=== PATIENT | female | born 1940 | race Caucasian/White ===

== ENCOUNTER 2018-09-27 09:48 | Outpatient (CLI) | payer MEDICARE ==
[~2018-09-27] VITALS: Ht 153.7 cm; Wt 79.8 kg
[2018-09-27] MEDS ORDERED: LEVO75TA6 PO (11:00)
[2018-09-27] MEDS ORDERED: CHOL10007 PO (11:00)
[2018-09-27] MEDS ORDERED: VITA1CAP PO (11:00)
[2018-09-27] MEDS ORDERED: METO-395 PO (11:00)
[2018-09-27] MEDS ORDERED: GUAI600T43 PO (11:00)
[2018-09-27] MEDS ORDERED: LISI-552 PO (11:00)
[2018-09-27] MEDS ORDERED: ISM60TCR PO (11:00)
[2018-09-27] MEDS ORDERED: ASPI-586 PO (11:00)
[2018-09-27] MEDS ORDERED: TRAM50TA2 PO (11:00)
[2018-09-27] MEDS ORDERED: POTA99TA17 PO (11:00)
[2018-09-27] MEDS ORDERED: CALC-650 PO (11:00)
[2018-09-27] MEDS ORDERED: DIPH25CA79 PO (11:00)
[2018-09-27] MEDS ORDERED: FURO-125 PO ×2 (11:00)
== END 2018-09-27 11:05 | disposition home or self-care (01) ==
LOC: PREOP 09:48
PROVIDERS: ATTEND Specialist
DX: Z01.818 Encounter for other preprocedural examination (principal)

== ENCOUNTER 2018-09-28 09:38 | Day surgery (SDC) | payer MEDICARE, OTHER ==
[~2018-09-28] VITALS: Ht 153.7 cm; Wt 79.8 kg
[~2018-09-28 09:38] MED LIST: ASPI-586 PO; CALC-650 PO; CHOL10007 PO; DIPH25CA79 PO; FURO-125 PO; GUAI600T43 PO; ISM60TCR PO; LEVO75TA6 PO; LISI-552 PO; METO-395 PO; POTA99TA17 PO; TRAM50TA2 PO; VITA1CAP PO
--- OUTSIDE RECORDS SUMMARY | 2018-09-28 09:41 | XMS REPORT | Continuity of Care Document ---
Author Author [facility] Organization [facility] Address Unknown Phone Unavailable Allergies Active Description Code Type Severity Reaction Onset Reported/Identified Relationship to Patient Clinical Status Yes LIDOCAINE UNKNOWN UNKNOWN Yes NORVASC UNKNOWN UNKNOWN Yes SULFA (SULFONAMIDE ANTIBIOTICS) UNKNOWN UNKNOWN Yes propoxyphene [id number] Drug Allergy Severe CP 09/27/2018 Yes amlodipine [id number] Drug Allergy Moderate FEET SWELLING 09/27/2018 Yes aliskiren [id number] Drug Allergy Unknown N/A 09/27/2018 Medications There is no data. Problems Date Dx Coded Attending Type Code Diagnosis Diagnosed By 06/06/2017 Fuentes Dorado 401.9 UNSPECIFIED ESSENTIAL HYPERTENSION 06/06/2017 Fuentes Dorado I10 ESSENTIAL (PRIMARY) HYPERTENSION 06/06/2017 Fuentes Dorado 272.4 OTHER AND UNSPECIFIED HYPERLIPIDEMIA 06/06/2017 Fuentes Dorado 401.9 UNSPECIFIED ESSENTIAL HYPERTENSION 06/06/2017 Fuentes Dorado E78.4 OTHER HYPERLIPIDEMIA 06/06/2017 Fuentes Dorado I10 ESSENTIAL (PRIMARY) HYPERTENSION 06/06/2017 Fuentes Dorado 244.8 OTHER SPECIFIED ACQUIRED HYPOTHYROIDISM 06/06/2017 Fuentes Dorado 272.4 OTHER AND UNSPECIFIED HYPERLIPIDEMIA 06/06/2017 Fuentes Dorado 401.9 UNSPECIFIED ESSENTIAL HYPERTENSION 06/06/2017 Fuentes Dorado E03.8 OTHER SPECIFIED HYPOTHYROIDISM 06/06/2017 Fuentes Dorado E78.4 OTHER HYPERLIPIDEMIA 06/06/2017 Fuentes Dorado I10 ESSENTIAL (PRIMARY) HYPERTENSION 09/18/2017 Lakeshia Jacob 402.90 HYPERTENSIVE HEART DISEASE, UNSPECIFIED, WITHOUT HEART FAILURE 09/18/2017 Lakeshia Jacob 416.8 OTHER CHRONIC PULMONARY HEART DISEASES 09/18/2017 Lakeshia Jacob I11.9 HYPERTENSIVE HEART DISEASE WITHOUT HEART FAILURE 09/18/2017 Lakeshia Jacob I27.2 OTHER SECONDARY PULMONARY HYPERTENSION 09/18/2017 Lakeshia Jacob 244.9 09/18/2017 Lakeshia Jacob W 268 09/18/2017 Lakeshia Jacob W 272.8 OTHER DISORDERS OF LIPOID METABOLISM 09/18/2017 Lakeshia Jacob W 402.90 HYPERTENSIVE HEART DISEASE, UNSPECIFIED, WITHOUT HEART FAILURE 09/18/2017 Laksehia Jacob W 416.8 OTHER CHRONIC PULMONARY HEART DISEASES 09/18/2017 Lakeshia Jacob W 425.18 OTHER HYPERTROPHIC CARDIOMYOPATHY 09/18/2017 Lakeshia Jacob E03.9 HYPOTHYROIDISM, UNSPECIFIED 09/18/2017 Lakeshia Jacob W E55.9 VITAMIN D DEFICIENCY, UNSPECIFIED 09/18/2017 Lakeshia Jacob W E78.5 HYPERLIPIDEMIA, UNSPECIFIED 09/18/2017 Lakeshia Jacob W I11.9 HYPERTENSIVE HEART DISEASE WITHOUT HEART FAILURE 09/18/2017 Lakeshia Jacob I27.2 OTHER SECONDARY PULMONARY HYPERTENSION 09/18/2017 Lakeshia Jacob I42.1 OBSTRUCTIVE HYPERTROPHIC CARDIOMYOPATHY Procedures There is no data. Results Test Result Range Holter Montor 24 Hour - 06/06/17 11:01 Holter Monitor 24 Hour Complete Thyroid Stimulating Hormone - 09/18/17 08:16 TSH 3.83 mIU/mL 0.32-5.00 Vitamin D, 25 OH - 09/18/17 08:16 Vitamin D, 25 OH 42.50 ng/mL 25.00-100.00 BNP - 03/13/18 10:08 BNP 408.10 pg/ml 0.00-100.00 Thyroid Stimulating Hormone - 09/24/18 07:41 TSH 1.99 mIU/mL 0.32-5.00 Encounters ACCT No. Visit Date/Time Discharge Status Pt. Type Provider Facility Loc./Unit Complaint [id number] 09/27/2018 09:48:00 09/27/2018 11:05:00 DIS Outpatient BLANCO MONROY MD [facility] PREOP CATARACT [id number] 09/05/2013 14:19:00 09/05/2013 23:59:59 CLS Outpatient [id number] 07/29/2013 13:50:00 07/29/2013 23:59:59 CLS Outpatient [id number] 09/28/2018 12:45:00 PEN Preadmit [facility] [id number] 09/24/2018 07:38:00 09/24/2018 23:59:00 DIS Outpatient Lakeshia Jacob [id number] 03/13/2018 09:43:00 03/13/2018 23:59:00 DIS Outpatient Fuentes Dorado [id number] 09/18/2017 08:07:00 09/18/2017 23:59:00 DIS Outpatient Lakeshia Jacob [id number] 06/06/2017 10:42:00 06/06/2017 23:59:00 DIS Outpatient Fuentes Dorado
[2018-09-28 09:45] VITALS: BP 168/85
[2018-09-28] MEDS ORDERED: LIDOCAINE PF 1% 2 ML AMP IR PRN (10:00)
[2018-09-28] MEDS ORDERED: POVIDONE (BETADINE) OPHTH SOLN 5% 30 ML OP ONE (10:00)
[2018-09-28] MEDS ORDERED: TIMOLOL MALEATE 0.5% 5 ML (TIMOPTIC) BTL OU PRN (10:00)
[2018-09-28] MEDS ORDERED: MOXIFLOXACIN OPHTH SOLN 5 MG/ML 0.3 ML SYRINGE OP ONE (10:00)
[2018-09-28] MEDS: TETRACAINE 0.5% OPHTH SOLN 4 ML BTL (SINGLE DOSE ONLY) OU PRN ×4 (10:03→10:12)
[2018-09-28] MEDS: CYCLOPENTOLATE 1% (CYCLOGYL) 2 ML DROPS OP SCH ×3 (10:06→10:12)
[2018-09-28] MEDS: PHENYLEPHRINE 10% OPHTH (NEO-SYN) 5 ML BTL OU SCH ×3 (10:06→10:12)
[2018-09-28] MEDS ORDERED: MIDAZOLAM 2 MG/2 ML (VERSED) VIAL ONE (10:13)
--- NOTE | 2018-09-28 10:15 | Ophthalmologist Pre-Op Note ---
Pre-Operative Progress Note H&P Reviewed The H&P was reviewed, patient examined and no changes noted. Date H&P Reviewed: Sep 28, 2018 Time H&P Reviewed: 10:15 Pre-Op Dx Cataract, Right Eye BLANCO MONROY MD Sep 28, 2018 10:15
--- NOTE | 2018-09-28 10:49 | Ophthalmology Operative Report ---
Cataract removal/placement IOL PREOPERATIVE DIAGNOSIS: Cataract Right Eye POSTOPERATIVE DIAGNOSIS: Cataract Right Eye PROCEDURE: Cataract removal and placement of posterior chamber implant, right eye SURGEON: Blair Monroy ANESTHESIA: Topical with sedation COMPLICATIONS: None ESTIMATED BLOOD LOSS: Minimal DESCRIPTION OF PROCEDURE: After proper informed consent was obtained, the patient, a 78 female, was taken to the Operating Room and the right eye was anesthetized with tetracaine. The right eye was then prepped and draped in the usual manner. A wire lid speculum was placed. A paracentesis was made at the left hand position. Preservative free lidocaine was injected into the anterior chamber followed by viscoelastic. A clear corneal incision was made in the temporal position. A capsulorrhexis was preformed and the central nuclear and cortical material were removed. The posterior capsule was polished and Sushant 20.0 AU00T0 IOL was placed into the capsular bag. The residual viscoelastic was aspirated and balanced saline solution was injected into the anterior chamber. Moxifloxacin was injected into the anterior chamber. The wound was checked and found to be water tight. The patient tolerated the procedure well without complications. BLAIR MONROY MD Sep 28, 2018 10:49
[2018-09-28 10:55] VITALS: BP 152/80
[2018-09-28] MEDS ORDERED: acetaZOLAMIDE ER 500 MG CAP (DIAMOX SEQUELS) PO ONE (11:30)
--- NOTE | 2018-09-28 12:56 | Anesthesia-General Post-Op ---
MAC Patient Condition Mental Status/LOC: Same as Preop Cardiovascular: Satisfactory Nausea/Vomiting: Absent Respiratory: Satisfactory Pain: Controlled Complications: Absent Post Op Complications Complications None Follow Up Care/Instructions Patient Instructions None needed. Anesthesiology Discharge Order Discharge Order Patient is doing well, no complaints, stable vital signs, no apparent adverse anesthesia problems. No complications reported per nursing. GISSELLE ROBISON CRNA Sep 28, 2018 12:56
== END 2018-09-28 10:55 | disposition home or self-care (01) ==
LOC: SDC 09:38
PROVIDERS: ATTEND Specialist
DX: H25.11 Age-related nuclear cataract, right eye (principal); I10 Essential (primary) hypertension; E03.9 Hypothyroidism, unspecified; Z79.82 Long term (current) use of aspirin; Z79.899 Other long term (current) drug therapy

== ENCOUNTER 2021-10-15 15:26 | Inpatient (IN) | payer MEDICARE ==
[~2021-10-15] VITALS: Ht 165.5 cm; Wt 72.4 kg
[~2021-10-15 15:26] MED LIST changes: +APIX5TAB PO; +ASPI-1238 PO; +ASPI-992 PO; +CEFD300C3 PO; +CHOL100048 PO; +DIGO125T18 PO; +DILT180C85 PO; +DILT300C52 PO; -ISM60TCR PO; +ISOS60TA63 PO; -LISI-552 PO; +LISI20TA26 PO; +LISI40TA9 PO; -METO-395 PO; +MTP100TCR PO; +POTA99TA18 PO; -TRAM50TA2 PO; +TRM50T PO; +VITA-189 PO; +[UNRECOGNIZED DRUG - CODE] MC
--- NOTE | 2021-10-15 15:43 | ED Neurological Problem ---
General Chief Complaint: Neuro-Stroke Like Symptoms Stated Complaint: POSSIBLE STROKE Source: patient, EMS Exam Limitations: clinical condition History of Present Illness Date Seen by Provider: Oct 15, 2021 Time Seen by Provider: 15:30 Initial Comments 81-year-old female with past medical history of pulmonary hypertension, chronic respiratory failure with hypoxia on 2 to 3 L oxygen, A. fib, CAD, hypertension, hypothyroidism coming in via EMS from home due to new weakness and confusion. They were called for a wellness check, and she was sitting on the floor in the bathroom. She denies falling, but says she was unable to stand up. She is unsure why she was on the floor. She was not wearing oxygen on their arrival and they replaced her oxygen. Unsure when she was last normal but they state that she had some right arm weakness that she believes is new. She is unsure if she took her medications this morning including her apixaban. She is denying any pain anywhere. Glucose was 140 for EMS. Further elements of the history and physical are unable to be obtained as the patient is confused. Allergies and Home Medications Allergies Coded Allergies: propoxyphene (Verified Allergy, Severe, CP, 09/27/18) amiodarone (Verified Allergy, Intermediate, Hives, 05/27/20) hives, itching, redness amlodipine (Verified Allergy, Intermediate, FEET SWELLING, 09/27/18) aliskiren (Verified Allergy, Unknown, 09/27/18) Patient Home Medication List Home Medication List Reviewed: Yes Apixaban (Eliquis) 5 Mg Tablet, 5 MG PO BID Prescribed by: KAYE ESPINOZA on 06/02/20 1008 Aspirin (Aspirin EC) 81 Mg Tablet.dr, 81 MG PO DAILY, (Reported) Entered as Reported by: JOSE RASCON on 05/25/20 1349 Aspirin/Acetaminophen/Caffeine (Excedrin Extra Strength Caplet) 1 Each Tablet, 1 EACH PO DAILY PRN for PAIN-MILD (1-4), (Reported) Entered as Reported by: JOSE RASCON on 05/25/20 1352 Calcium Carb/Magnesium Cmb #10 (Christopher-Mag Tablet Chewable) 1 Each Tab.chew, 1 EACH PO DAILY, (Reported) Entered as Reported by: HOMAR HARRIS on 09/27/18 1100 Cefdinir (Cefdinir) 300 Mg Capsule, 300 MG PO BID Prescribed by: KAYE ESPINOZA on 06/02/20 100 Cholecalciferol (Vitamin D3) (Vitamin D3) 25 Mcg Capsule, 25 MCG PO DAILY, (Reported) Entered as Reported by: JOSE RASCON on 05/25/20 134 Digoxin (Digox) 125 Mcg Tablet, 0.25 MG PO DAILY Prescribed by: KAYE ESPINOZA on 06/02/20 100 Diltiazem HCl (Diltiazem 24Hr ER) 300 Mg Cap.er.24h, 300 MG PO DAILY Prescribed by: KAYE ESPINOZA on 06/02/20 100 Diphenhydramine HCl (Benadryl) 25 Mg Capsule, 25 MG PO HS PRN for ALLERGIES, (Reported) Entered as Reported by: HOMAR HARRIS on 09/27/18 1100 Flavoring Agent (Magnasweet 135) 1 Gm Powder, 0 MC DAILY PRN for LEG CRAMPS, (Reported) Entered as Reported by: JOSE RASCON on 05/25/20 1359 Furosemide (Lasix) 20 Mg Tablet, 20 MG PO DAILY, (Reported) Entered as Reported by: HOMAR HARRIS on 09/27/18 1100 Guaifenesin (Mucinex) 600 Mg Tab.er.12h, 600 MG PO DAILY, (Reported) Entered as Reported by: HOMAR HARRIS on 09/27/18 1100 Levothyroxine Sodium (Levothyroxine Sodium) 75 Mcg Tablet, 75 MCG PO DAILY, (Reported) Entered as Reported by: HOMAR HARRIS on 09/27/18 1100 Lisinopril (Lisinopril) 40 Mg Tablet, 40 MG PO DAILY, (Reported) Entered as Reported by: JOSE RASCON on 05/25/20 134 Potassium Gluconate (Potassium Gluconate) 99 Mg Tablet.er, 99 MG PO DAILY, (Reported) Entered as Reported by: JOSE RASCON on 05/25/20 134 Tramadol HCl (Tramadol HCl) 50 Mg Tablet, 50 MG PO Q6H PRN for PAIN-MODERATE (5- 7), (Reported) Entered as Reported by: HOMAR HARRIS on 09/27/18 1100 Vitamin B Complex (B Complex) 1 Each Tablet, 1 EACH PO DAILY, (Reported) Entered as Reported by: JOSE RASCON on 05/25/20 1721 Review of Systems Review of Systems Constitutional: No chills, No fever Eyes: Denies Blurred Vision Respiratory: short of breath Cardiovascular: No chest pain Gastrointestinal: No abdominal pain Genitourinary: no symptoms reported Musculoskeletal: no symptoms reported Skin: no symptoms reported Psychiatric/Neurological: Weakness Endocrine: No Symptoms Reported Hematologic/Lymphatic: No Symptoms Reported All Other Systems Reviewed Negative Unless Noted: Yes Past Alcdulz-Cczcqb-Qncxgx Hx Patient Social History Tobacco Use?: No Seasonal Allergies Seasonal Allergies: Yes Past Medical History Sleep Apnea Currently Using CPAP: No Currently Using BIPAP: No Cardiac: Yes Neurological: No Female Reproductive Disorders: Denies Sexually Transmitted Disease: No HIV/AIDS: No Genitourinary: No Gastroesophageal Reflux, Diverticulosis Musculoskeletal: Yes Fibromyalgia, Chronic Back Pain Endocrine: No Cataract Loss of Vision: Denies Hearing Impairment: Hard of Hearing, Hearing Aide Right Cancer: No Psychosocial: No Integumentary: No Pruritis Blood Disorders: No Adverse Reaction/Blood Tranf: No Physical Exam Vital Signs Vital Signs - First Documented 10/15/21 15:27 Temp 35.9 Pulse 114 Resp 30 B/P (MAP) 187/110 (135) Pulse Ox 92 O2 Delivery Nasal Cannula O2 Flow Rate 6.00 Capillary Refill : Height, Weight, BMI Height: 5'0.50" Weight: 176lbs. 0.0oz. 79.886339pe; 36.76 BMI Method: General Appearance: WD/WN, no apparent distress HEENT: PERRL/EOMI, normal ENT inspection, pharynx normal Neck: non-tender, full range of motion, supple, normal inspection Respiratory: chest non-tender, lungs clear, normal breath sounds, no respiratory distress, no accessory muscle use Cardiovascular: no edema, tachycardia, irregularly irregular Gastrointestinal: normal bowel sounds, non tender, soft; No distended, No guarding, No rebound Back: normal inspection, no CVA tenderness, no vertebral tenderness Extremities: non-tender, normal inspection, no pedal edema, no calf tenderness, normal capillary refill Neurologic/Psychiatric: pre 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 consultant II-XII nml as tested, alert, normal mood/affect, disoriented x 3, other (3-5 strength with the right upper extremity compared to the left which is 5 out of 5, normal [id number] with the left, unable to per form with the right hand due to the weakness, oriented to person and place but not time or situation, has some word finding difficulties) Crainal Nerves: normal hearing, normal speech, PERRL Motor/Sensory: no sensory deficit Skin: normal color, warm/dry Lymphatic: no adenopathy Stroke Onset of Symptoms Symptoms onset unknown: Yes NIH Stroke Scale Assessment Select: Initial Level of Consciousness: 0=Alert (0), Level of Consciousness- Questions: 1=Answers one question (1), LOC Commands: 0=Performs both tasks (0), Gaze: Normal (0), Visual Lei: 0=No visual loss (0), Facial Movement (Facial Paresis): 0=Normal symmetrical mnt (0), Motor Function-Arms Right: 2=Some effort/gravity (2), Motor Function-Arms Left: 0=No drift (0), Motor Function-Legs Right: 1=Drift (1), Motor Function-Legs Left: 0=No drift (0), Limb Ataxia: 0=Absent (0), Sensory: 0=Normal:no loss (0), Best Language: 1=Mild to moderat aphasia (1), Dysarthria: 0=Normal (0), Extinction & Inattention: 0=No abnormality (0), Total: 5 Stroke Thrombolytic Exclusion Age 18 or Over: Yes Oral Anticoagulants: Yes TPA Contraindication: Yes IV - TPa Received IV - TPa Procedure Performed?: No Focused Exam Lactate Level 10/15/21 16:36: Lactic Acid Level 5.28*H Lactic Acid Level Laboratory Tests Test 10/15/21 16:36 Lactic Acid Level 5.28 MMOL/L (0.50-2.00) *H Progress/Results/Core Measures Results/Orders Lab Results Laboratory Tests Test 10/15/21 15:41 10/15/21 15:57 10/15/21 16:13 10/15/21 16:24 Range/Units White Blood Count 15.1 H 4.3-11.0 10^3/uL Red Blood Count 5.52 H 3.80-5.11 10^6/uL Hemoglobin 12.4 11.5-16.0 g/dL Hematocrit 42 35-52 % Mean Corpuscular Volume 76 L 80-99 fL Mean Corpuscular Hemoglobin 23 L 25-34 pg Mean Corpuscular Hemoglobin Concent 30 L 32-36 g/dL Red Cell Distribution Width 22.9 H 10.0-14.5 % Platelet Count 265 130-400 10^3/uL Mean Platelet Volume 10.4 9.0-12.2 fL Immature Granulocyte % (Auto) 0 % Neutrophils (%) (Auto) 80 H 42-75 % Lymphocytes (%) (Auto) 8 L 12-44 % Monocytes (%) (Auto) 12 0-12 % Eosinophils (%) (Auto) 0 0-10 % Basophils (%) (Auto) 0 0-10 % Neutrophils # (Auto) 12.1 H 1.8-7.8 X 10^3 Lymphocytes # (Auto) 1.1 1.0-4.0 X 10^3 Monocytes # (Auto) 1.8 H 0.0-1.0 X 10^3 Eosinophils # (Auto) 0.0 0.0-0.3 10^3/uL Basophils # (Auto) 0.0 0.0-0.1 10^3/uL Immature Granulocyte # (Auto) 0.0 0.0-0.1 10^3/uL Neutrophils % (Manual) 87 % Lymphocytes % (Manual) 5 % Monocytes % (Manual) 8 % Polychromasia SLIGHT Target Cells MODERATE Elliptocytes SLIGHT Blood Morphology Comment NA Prothrombin Time 18.0 H 12.2-14.7 SEC INR Comment 1.4 0.8-1.4 Activated Partial Thromboplast Time 28 24-35 SEC B-Type Natriuretic Peptide 865.4 H <100.0 PG/ML Glucometer 134 H 70-110 MG/DL D-Dimer 3.61 H 0.00-0.49 UG/ML Sodium Level 143 135-145 MMOL/L Potassium Level 4.0 3.6-5.0 MMOL/L Chloride Level 99 98-107 MMOL/L Carbon Dioxide Level 24 21-32 MMOL/L Anion Gap 20 H 5-14 MMOL/L Blood Urea Nitrogen 20 H 7-18 MG/DL Creatinine 1.03 0.60-1.30 MG/DL Estimat Glomerular Filtration Rate 55 BUN/Creatinine Ratio 19 Glucose Level 135 H 70-105 MG/DL Calcium Level 12.2 H 8.5-10.1 MG/DL Corrected Calcium 12.2 H 8.5-10.1 MG/DL Total Bilirubin 2.6 H 0.1-1.0 MG/DL Aspartate Amino Transf (AST/SGOT) 103 H 5-34 U/L Alanine Aminotransferase (ALT/SGPT) 53 0-55 U/L Alkaline Phosphatase 154 H 40-136 U/L Troponin I 5.127 *H <0.028 NG/ML Total Protein 7.6 6.4-8.2 GM/DL Albumin 4.0 3.2-4.5 GM/DL Digoxin Level 0.78 L 0.80-2.00 NG/ML Blood Gas Puncture Site UNK Blood Gas Patient Temperature 35.9 Arterial Blood pH 7.47 H 7.37-7.43 Arterial Blood Partial Pressure CO2 38 35-45 MMHG Arterial Blood Partial Pressure O2 97 H 79-93 MMHG Arterial Blood HCO3 28 H 23-27 MMOL/L Arterial Blood Total CO2 29.0 21.0-31.0 MMOL/L Arterial Blood Oxygen Saturation 98 94-100 % Arterial Blood Base Excess 4.0 H -2.5-2.5 MMOL/L Cam Test UNK Blood Gas Ventilator Setting NO Blood Gas Inspired Oxygen 50% Test 10/15/21 16:30 10/15/21 16:36 10/15/21 17:10 Range/Units Influenza Type A (RT-PCR) Not Detected Not Detecte Influenza Type B (RT-PCR) Not Detected Not Detecte SARS-CoV-2 RNA (RT-PCR) Not Detected Not Detecte Lactic Acid Level 5.28 *H 0.50-2.00 MMOL/L Urine Color YELLOW Urine Clarity CLEAR Urine pH 5.5 5-9 Urine Specific [place] >=1.030 1.016-1.022 Urine Protein 1+ H NEGATIVE Urine Glucose (UA) NEGATIVE NEGATIVE Urine Ketones NEGATIVE NEGATIVE Urine Nitrite NEGATIVE NEGATIVE Urine Bilirubin NEGATIVE NEGATIVE Urine Urobilinogen 0.2 < = 1.0 MG/DL Urine Leukocyte Esterase NEGATIVE NEGATIVE Urine RBC (Auto) 1+ H NEGATIVE Urine RBC NONE /HPF Urine WBC 2-5 /HPF Urine Squamous Epithelial Cells 0-2 /HPF Urine Renal Epithelial Cells NONE /HPF Urine Crystals NONE /LPF Urine Bacteria NEGATIVE /HPF Urine Casts PRESENT /LPF Urine Hyaline Casts 5-10 H /LPF Urine Mucus NEGATIVE /LPF Urine Culture Indicated NO My Orders Orders - JAKOB CARSON MD Cbc With Automated Diff (10/15/21 15:34) Protime With Inr (10/15/21 15:34) Partial Thromboplastin Time (10/15/21 15:34) Comprehensive Metabolic Panel (10/15/21 15:34) Troponin I Allen (10/15/21 15:34) Ua Culture If Indicated (10/15/21 15:34) Chest 1 View, Ap/Pa Only (10/15/21 15:34) Ekg Tracing (10/15/21 15:34) Nothing By Mouth (10/15/21 Dinner) Accucheck Stat ONCE (10/15/21 15:34) Ed Iv/Invasive Line Start (10/15/21 15:34) Ed Iv/Invasive Line Start (10/15/21 15:34) Vital Signs Stroke Patient Q15M (10/15/21 15:34) Ct Head Wo-R/O Stroke (10/15/21 15:34) O2 (10/15/21 15:34) Intake & Output 06,14,22 (10/15/21 15:34) Monitor-Rhythm Ecg Trace Only (10/15/21 15:34) Dysphagia Screening Tool (10/15/21 15:34) Manual Differential (10/15/21 15:41) Arterial Blood Gas (10/15/21 16:15) Bnp Allen (10/15/21 16:15) Digoxin (10/15/21 16:15) Lactic Acid Analyzer (10/15/21 16:15) Influenza A And B By Pcr (10/15/21 16:15) Covid 19 Inhouse Test (10/15/21 16:15) Fibrin Degradation Products (10/15/21 16:29) Accucheck Stat ONCE (10/15/21 16:29) Ed Iv/Invasive Line Start (10/15/21 16:29) Ed Iv/Invasive Line Start (10/15/21 16:29) Vital Signs Stroke Patient Q15M (10/15/21 16:29) O2 (10/15/21 16:29) Intake & Output 06,14,22 (10/15/21 16:29) Dysphagia Screening Tool (10/15/21 16:29) Post Thrombolytic Adminstratio (10/15/21 16:29) Lipid Panel (10/16/21 06:00) Ekg Tracing (10/15/21 16:39) Diltiazem Drip Pre-Mix (Cardizem Drip Pr (10/15/21 16:45) Catheter(Urinary) Insert & Ass 03,15 (10/15/21 17:20) Aspirin Chewable Tablet (Baby Aspirin Ch (10/15/21 17:30) Aspirin Chewable Tablet (Baby Aspirin Ch (10/15/21 17:27) Medications Given in ED Current Medications Medications Dose Ordered Sig/Jalyn Route Start Time Stop Time Status Last Admin Dose Admin Aspirin 324 mg ONCE ONCE PO 10/15/21 17:30 10/15/21 17:31 DC 10/15/21 17:31 324 MG Vital Signs/I&O 10/15/21 10/15/21 15:27 15:27 Temp 35.9 Pulse 114 Resp 30 B/P (MAP) 187/110 (135) Pulse Ox 92 O2 Delivery Nasal Cannula O2 Flow Rate 6.00 Progress Progress Note : Progress Note 81-year-old female with above history coming in via EMS with weakness and confusion. EMS was initially called because no one had seen the patient for a couple days. On arrival one of the friends at the house said that the patient was normal yesterday. Unclear what time that was. The patient is unable to tell me the last time she was normal. When asked how she got on the ground and why she needed help up, she just kept repeating, "I was just trying to get up". She denies falling but is really unsure. EMS reports glucose was 140. She is in A. fib with RVR rates 120s. She is unsure if she took her Eliquis today. She was in a stroke alert and immediately taken to the CT scanner. NIH is 5 currently. Discussed the case with Dr. Estevez with neurology who would agree that the patient is not a candidate for TPA at this time with no last known normal, her age, and being on anticoagulation. She developed increasing work of breathing and was placed on bipap eventually. Was going to start the patient on a Cardizem drip but then initial labs came back with BNP elevated and troponin elevated around 5.1. Lactate elevated at 5. I am concerned the patient did have a cardiac event. Dr. Jiang did look at the EKG and did not see a STEMI, but given the significant troponin elevation would like to take the patient to the [facility] which she will go emergently. Also discussed the case with the patient's friend that found her today, Sarah, at [phone]. Let her daughter Charlene (lives in [place]) know the patient was here at [phone]. Discussed code status and patient wants to be full code. Initial ECG Impression Date: Oct 15, 2021 Initial ECG Impression Time: 15:35 Initial ECG Rate: 125 Initial ECG Rhythm: A Fib/Flutter Comment A. fib with RVR, wide QRS with the bundle branch block, ST elevation in leads V3 through V6, but given the bundle branch block this is discordant and does not meet criteria for STEMI, reviewed EKG with Dr. Jiang. Diagnostic Imaging Diagonstic Imaging: Xray Plain Films/CT/US/NM/MRI: chest Comments [facility], [place] NAME: PATTI ELLINGTON [facility] REC#: [id number] PT STATUS: REG ER : 1940 PHYSICIAN: JAKOB CARSON MD ADMIT DATE: 10/15/21/ER Draft Date of Exam:10/15/21 CT HEAD WO-R/O STROKE INDICATION: Neurologic deficit, stroke alert. TECHNIQUE: Multiple contiguous axial images were obtained through the brain without the use of intravenous contrast. Auto Exposure Controls were utilized during the CT exam to meet ALARA standards for radiation dose reduction. COMPARISON: There is no prior CT for comparison. FINDINGS: There are mild diffuse atrophic changes. There are mild patchy low-density changes in the deep white matter, compatible with chronic ischemic change. There is no acute hemorrhage or mass effect or midline shift. The ventricles are normal in size and position. There are atherosclerotic calcifications of the distal vertebral arteries as well as carotid siphons. There is no definite acute-appearing abnormality. Calvarial windows are unremarkable. IMPRESSION: Atrophic changes and chronic ischemic changes in deep white matter. No acute hemorrhage or mass effect or acute intracranial finding. Dictated on workstation # [id number] Dict: 10/15/21 1556 Trans: 10/15/21 1604 [id number] Interpreted by: VINCENT ASCENCIO MD Electronically signed by: Critical Care Note Critical Care Start Time: 15:30 Stop Time: 17:25 Total Time (minutes) 115 Progress The patient was at significant risk for hemodynamic and respiratory compromise. I was constantly in the room reassessing the patient and ordering new interventions and reassessing after that. She was in respiratory failure as well as A. fib with RVR with concern for hemodynamic collapse. Also had multiple in person and phone call conversations with different physicians and specialist including cardiology regarding her care. All time billed for critical care is separate from any procedures. Departure Impression Primary Impression: Respiratory failure Qualified Codes: J96.21 - Acute and chronic respiratory failure with hypoxia Additional Impressions: Atrial fibrillation with RVR Right sided weakness NSTEMI (non-ST elevated myocardial infarction) Disposition: ADMITTED INPATIENT Condition: Critical Admissions Decision to Admit Reason: Admit from ER (General) Decision to Admit/Date: Oct 15, 2021 Time/Decision to Admit Time: 17:00 Departure-Patient Inst. Referrals: MONE MALDONADO MD (PCP/Family) Primary Care Physician JAKOB CARSON MD Oct 15, 2021 15:43
[2021-10-15 15:47] LABS: BASOPHILS % (AUTO) 0 % (0-10); EOSINOPHILS % (AUTO) 0 % (0-10); HEMATOCRIT 42 % (35-52); HEMOGLOBIN 12.4 g/dL (11.5-16.0); LYMPHOCYTES # (AUTO) 1.1 X 10^3 (1.0-4.0); LYMPHOCYTES % (AUTO) 8 % (12-44); MEAN CORPUSCULAR HEMOGLOBIN 23 pg (25-34); MEAN CORPUSCULAR HGB CONC 30 g/dL (32-36); MEAN CORPUSCULAR VOLUME 76 fL (80-99); MEAN PLATELET VOLUME 10.4 fL (9.0-12.2); MONOCYTES # (AUTO) 1.8 X 10^3 (0.0-1.0); MONOCYTES % (AUTO) 12 % (0-12); NEUTROPHILS # (AUTO) 12.1 X 10^3 (1.8-7.8); NEUTROPHILS % (AUTO) 80 % (42-75); PLATELET COUNT 265 10^3/uL (130-400); WHITE BLOOD COUNT 15.1 10^3/uL (4.3-11.0)
[2021-10-15 16:05] LABS: INR 1.4 (0.8-1.4)
--- NOTE | 2021-10-15 16:05 | Diagnostic Imaging Report ---
INDICATION: Neurologic deficit, stroke alert. TECHNIQUE: Multiple contiguous axial images were obtained through the brain without the use of intravenous contrast. Auto Exposure Controls were utilized during the CT exam to meet ALARA standards for radiation dose reduction. COMPARISON: There is no prior CT for comparison. FINDINGS: There are mild diffuse atrophic changes. There are mild patchy low-density changes in the deep white matter, compatible with chronic ischemic change. There is no acute hemorrhage or mass effect or midline shift. The ventricles are normal in size and position. There are atherosclerotic calcifications of the distal vertebral arteries as well as carotid siphons. There is no definite acute-appearing abnormality. Calvarial windows are unremarkable. IMPRESSION: Atrophic changes and chronic ischemic changes in deep white matter. No acute hemorrhage or mass effect or acute intracranial finding. Dictated by: Dictated on workstation # [id number]
[2021-10-15 16:10] LABS: LYMPHOCYTES % (MANUAL) 5 %; MONOCYTES % (MANUAL) 8 %; NEUTROPHILS % (MANUAL) 87 %
[2021-10-15 16:11] LABS: ELLIPT/OVALOCYTES SLIGHT; POLYCHROMASIA SLIGHT; TARGET CELLS MODERATE
[2021-10-15 16:32] LABS: ABG OXYGEN SATURATION 98 % (94-100); ABG PCO2 38 MMHG (35-45); ABG PH 7.47 (7.37-7.43); ABG PO2 97 MMHG (79-93)
[2021-10-15 16:33] LABS: CALCIUM 12.2 MG/DL (8.5-10.1)
[2021-10-15 16:34] LABS: INSPIRED O2 50%; VENTILATOR NO
[2021-10-15 16:35] LABS: TOTAL PROTEIN 7.6 GM/DL (6.4-8.2)
[2021-10-15 16:35] LABS: PATIENT TEMP 35.9
[2021-10-15 16:36] LABS: BILIRUBIN,TOTAL 2.6 MG/DL (0.1-1.0)
[2021-10-15 16:38] LABS: CREATININE SERUM 1.03 MG/DL (0.60-1.30)
[2021-10-15] MEDS: dilTIAZem DRIP PRE-MIX 125 ML IV SCH ×2 (16:48→23:39)
[2021-10-15] MEDS ORDERED: HEParin 1000 UNIT/ML (10ML VIAL) FOR BOLUS IV SCH (17:00)
[2021-10-15] MEDS ORDERED: ASPIRIN 300 MG (5 GR) SUPPOSITORY PR STA (17:00)
[2021-10-15 17:17] LABS: BILIRUBIN,URINE NEGATIVE (NEGATIVE); CLARITY,URINE CLEAR; COLOR,URINE YELLOW; GLUCOSE, URINE (UA) NEGATIVE (NEGATIVE); KETONES,URINE NEGATIVE (NEGATIVE); LEUKOCYTE ESTERASE ,URINE NEGATIVE (NEGATIVE); NITRITE,URINE NEGATIVE (NEGATIVE); PH,URINE 5.5 (5-9); PROTEIN,URINE 1+ (NEGATIVE)
[2021-10-15] MEDS ORDERED: ASPIRIN 81 MG CHEW (CHILDREN'S ASA) ONE (17:27)
[2021-10-15 17:28] LABS: BACTERIA,URINE NEGATIVE /HPF; SQUAMOUS EPITHELIAL CELL,UR 0-2 /HPF
[2021-10-15] MEDS ORDERED: ASPIRIN 81 MG CHEW (CHILDREN'S ASA) PO ONE (17:30)
--- NOTE | 2021-10-15 17:35 | Diagnostic Imaging Report ---
EXAMINATION: Portable chest. Comparison made with prior study from May 30, 2020. INDICATION: Weakness. Found down. FINDINGS: There is abnormal enlargement demonstrated of the cardiac silhouette which appears of increased prominence compared to the prior exam. There also is abnormal prominence of the pulmonary vascularity suggesting a component of pulmonary edema. There is no large effusion. There is no pneumothorax. There is no identified acute fracture. IMPRESSION: 1. Enlargement of the cardiac silhouette with abnormal pulmonary vascularity suggesting edema. 2. The size of the cardiac silhouette appears increased from the prior examination with a prominent left superior heart border and right heart border. These findings could be further assessed with CT. Dictated by: Dictated on workstation # [id number]
[2021-10-15] MEDS ORDERED: fentaNYL INJ 100 MCG/2 ML AMP ONE ×2 (17:39→19:30)
[2021-10-15] MEDS ORDERED: MIDAZOLAM 5 MG/5 ML (VERSED) VIAL ONE (17:40)
[2021-10-15] MEDS ORDERED: NS IV 1000 ML 1,000 ML ONE (17:40)
[2021-10-15] MEDS ORDERED: LIDOCAINE 2% 20 ML (XYLOCAINE) VIAL ONE (17:40)
[2021-10-15] MEDS ORDERED: HEParin (CATH LAB) 2,000 ML IV ONE (17:40)
[2021-10-15] MEDS ORDERED: VANCOMYCIN INJECTION 0.1 MG in NS (IVPB) 250 ML IV SCH (17:45)
[2021-10-15] MEDS ORDERED: NITRO DRIP 25000 MCG/D5W 250 ML IV ONE (17:56)
[2021-10-15] MEDS ORDERED: HEParin 1000 UNIT/ML (10ML VIAL) FOR BOLUS ONE (17:56)
--- NOTE | 2021-10-15 18:14 | Consultation-Cardiology ---
HPI-Cardiology Cardiology Consultation Date of Consultation 10/15/21 Date of Admission Time Seen by Provider: 18:10 Indication: Non-ST elevation myocardial infarction HPI 81-year-old lady with history of paroxysmal atrial fibrillation, had sudden weakness, patient reported that she brought herself down to the floor, she was well found by family member and brought to the emergency room by ambulance, last contact with her was over 24 hours ago. She was noted to be in atrial fibrillation rapid ventricular response, she is short of breath, denied any chest pain. Had right-sided weakness. She was noted to have elevated troponin, has baseline left bundle branch block, some subtle changes were noted with her tachycardia and atrial fibrillation. Home Medications & Allergies Allergies: Coded Allergies: propoxyphene (Verified Allergy, Severe, CP, 09/27/18) amiodarone (Verified Allergy, Intermediate, Hives, 05/27/20) hives, itching, redness amlodipine (Verified Allergy, Intermediate, FEET SWELLING, 09/27/18) aliskiren (Verified Allergy, Unknown, 09/27/18) Home Medication List Reviewed: Yes [id number] Hx Patient Social History Type Used: Cigarettes Recent Hopitalizations: No Have you traveled recently?: No Alcohol Use?: No Immunizations Up To Date Date of Pneumonia Vaccine: May 25, 2019 Past Medical History Discussed below Family Medical History Family Medical Hx Noncontributory Review of Systems-General Review of Systems Constitutional: No chills, No fever; malaise, weakness EENTM: see HPI, no symptoms reported Respiratory: see HPI; No cough, No dyspnea on exertion, No hemoptysis, No orthopnea, No phlegm; short of breath; No stridor, No wheezing, No other Cardiovascular: see HPI; No chest pain Gastrointestinal: No abdominal pain Genitourinary: no symptoms reported Musculoskeletal: no symptoms reported Skin: no symptoms reported Psychiatric/Neurological: No Symptoms Reported, See HPI, Other (Right side weakness) All Other Systems Reviewed Negative Unless Noted: Yes Reviewed Test Results Reviewed Test Results Lab Laboratory Tests Test 10/15/21 15:41 10/15/21 15:57 10/15/21 16:13 10/15/21 16:24 Range/Units White Blood Count 15.1 H 4.3-11.0 10^3/uL Red Blood Count 5.52 H 3.80-5.11 10^6/uL Hemoglobin 12.4 11.5-16.0 g/dL Hematocrit 42 35-52 % Mean Corpuscular Volume 76 L 80-99 fL Mean Corpuscular Hemoglobin 23 L 25-34 pg Mean Corpuscular Hemoglobin Concent 30 L 32-36 g/dL Red Cell Distribution Width 22.9 H 10.0-14.5 % Platelet Count 265 130-400 10^3/uL Mean Platelet Volume 10.4 9.0-12.2 fL Immature Granulocyte % (Auto) 0 % Neutrophils (%) (Auto) 80 H 42-75 % Lymphocytes (%) (Auto) 8 L 12-44 % Monocytes (%) (Auto) 12 0-12 % Eosinophils (%) (Auto) 0 0-10 % Basophils (%) (Auto) 0 0-10 % Neutrophils # (Auto) 12.1 H 1.8-7.8 X 10^3 Lymphocytes # (Auto) 1.1 1.0-4.0 X 10^3 Monocytes # (Auto) 1.8 H 0.0-1.0 X 10^3 Eosinophils # (Auto) 0.0 0.0-0.3 10^3/uL Basophils # (Auto) 0.0 0.0-0.1 10^3/uL Immature Granulocyte # (Auto) 0.0 0.0-0.1 10^3/uL Neutrophils % (Manual) 87 % Lymphocytes % (Manual) 5 % Monocytes % (Manual) 8 % Polychromasia SLIGHT Target Cells MODERATE Elliptocytes SLIGHT Blood Morphology Comment NA Prothrombin Time 18.0 H 12.2-14.7 SEC INR Comment 1.4 0.8-1.4 Activated Partial Thromboplast Time 28 24-35 SEC B-Type Natriuretic Peptide 865.4 H <100.0 PG/ML Glucometer 134 H 70-110 MG/DL D-Dimer 3.61 H 0.00-0.49 UG/ML Sodium Level 143 135-145 MMOL/L Potassium Level 4.0 3.6-5.0 MMOL/L Chloride Level 99 98-107 MMOL/L Carbon Dioxide Level 24 21-32 MMOL/L Anion Gap 20 H 5-14 MMOL/L Blood Urea Nitrogen 20 H 7-18 MG/DL Creatinine 1.03 0.60-1.30 MG/DL Estimat Glomerular Filtration Rate 55 BUN/Creatinine Ratio 19 Glucose Level 135 H 70-105 MG/DL Calcium Level 12.2 H 8.5-10.1 MG/DL Corrected Calcium 12.2 H 8.5-10.1 MG/DL Total Bilirubin 2.6 H 0.1-1.0 MG/DL Aspartate Amino Transf (AST/SGOT) 103 H 5-34 U/L Alanine Aminotransferase (ALT/SGPT) 53 0-55 U/L Alkaline Phosphatase 154 H 40-136 U/L Troponin I 5.127 *H <0.028 NG/ML Total Protein 7.6 6.4-8.2 GM/DL Albumin 4.0 3.2-4.5 GM/DL Digoxin Level 0.78 L 0.80-2.00 NG/ML Blood Gas Puncture Site UNK Blood Gas Patient Temperature 35.9 Arterial Blood pH 7.47 H 7.37-7.43 Arterial Blood Partial Pressure CO2 38 35-45 MMHG Arterial Blood Partial Pressure O2 97 H 79-93 MMHG Arterial Blood HCO3 28 H 23-27 MMOL/L Arterial Blood Total CO2 29.0 21.0-31.0 MMOL/L Arterial Blood Oxygen Saturation 98 94-100 % Arterial Blood Base Excess 4.0 H -2.5-2.5 MMOL/L Acm Test UNK Blood Gas Ventilator Setting NO Blood Gas Inspired Oxygen 50% Test 10/15/21 16:30 10/15/21 16:36 10/15/21 17:10 Range/Units Influenza Type A (RT-PCR) Not Detected Not Detecte Influenza Type B (RT-PCR) Not Detected Not Detecte SARS-CoV-2 RNA (RT-PCR) Not Detected Not Detecte Lactic Acid Level 5.28 *H 0.50-2.00 MMOL/L Urine Color YELLOW Urine Clarity CLEAR Urine pH 5.5 5-9 Urine Specific [place] >=1.030 1.016-1.022 Urine Protein 1+ H NEGATIVE Urine Glucose (UA) NEGATIVE NEGATIVE Urine Ketones NEGATIVE NEGATIVE Urine Nitrite NEGATIVE NEGATIVE Urine Bilirubin NEGATIVE NEGATIVE Urine Urobilinogen 0.2 < = 1.0 MG/DL Urine Leukocyte Esterase NEGATIVE NEGATIVE Urine RBC (Auto) 1+ H NEGATIVE Urine RBC NONE /HPF Urine WBC 2-5 /HPF Urine Squamous Epithelial Cells 0-2 /HPF Urine Renal Epithelial Cells NONE /HPF Urine Crystals NONE /LPF Urine Bacteria NEGATIVE /HPF Urine Casts PRESENT /LPF Urine Hyaline Casts 5-10 H /LPF Urine Mucus NEGATIVE /LPF Urine Culture Indicated NO Physical Exam Physical Exam Vital Signs Vital Signs - First Documented 10/15/21 15:27 Temp 35.9 Pulse 114 Resp 30 B/P (MAP) 187/110 (135) Pulse Ox 92 O2 Delivery Nasal Cannula O2 Flow Rate 6.00 Capillary Refill : Less Than 3 Seconds Height, Weight, BMI Height: 5'0.50" Weight: 176lbs. 0.0oz. 79.606217cl; 25.00 BMI Method: General Appearance: No Apparent Distress, WD/WN Eyes: Bilateral Eye Normal Inspection, Bilateral Eye PERRL, Bilateral Eye EOMI HEENT: PERRL/EOMI, TMs Normal, Normal ENT Inspection, Pharynx Normal, Moist Mucous Membranes Neck: Full Range of Motion, Normal Inspection, Non Tender, Supple, Carotid Bruit Respiratory: Chest Non Tender, Normal Breath Sounds, No Accessory Muscle Use, No Respiratory Distress Cardiovascular: No Edema, No Gallop, No JVD, No Murmur, Normal Peripheral Pulses, Irregularly Irregular, Tachycardia Gastrointestinal: Normal Bowel Sounds, No Organomegaly, No Pulsatile Mass, Non Tender, Soft Back: Normal Inspection, No CVA Tenderness, No Vertebral Tenderness Extremity: Normal Capillary Refill, Normal Inspection, Normal Range of Motion, Non Tender, No Calf Tenderness, No Pedal Edema Neurologic/Psychiatric: Alert, Oriented x3, Normal Mood/Affect, Other (Right side week) Skin: Normal Color, Warm/Dry Lymphatic: No Adenopathy A/P-Cardiology Admission Diagnosis Non-ST elevation myocardial infarction Atrial fibrillation with rapid ventricular response Subacute CVA Acute respiratory failure Assessment/Plan Non-ST elevation myocardial infarction, elevated troponin, emergency cardiac catheterization was carried out showing calcified coronary artery with mild to moderate disease nonobstructive disease. Atrial fibrillation with rapid ventricular response, had history of paroxysmal atrial fibrillation, started on Cardizem drip, starting Lovenox, continue on aspirin, monitor Acute respiratory failure, shortness of breath, currently on Vapotherm, probably will need BiPAP, managed by medical team questionable underlying pneumonia st arted on empiric antibiotic Sepsis, elevated lactic acid, could be secondary to sepsis versus being on the floor for over 24 hours. Subacute CVA. Patient has right-sided weakness. Probably was the cause of her weakness and fall over 24 hours ago. Hypertension, starting Cardizem drip, monitor tolerance and response Clinical Quality Measures Stroke: Symptoms onset unknown: Yes RIK MILLARD MD Oct 15, 2021 18:14
[2021-10-15] MEDS ORDERED: PATIENT MAY USE OWN MEDS, ALL PO SCH (18:15)
[2021-10-15] MEDS ORDERED: ENOXAPARIN 100 MG/1 ML (LOVENOX) SYR SC SCH (18:15)
--- NOTE | 2021-10-15 18:15 | Conscious Sedation/ASA ---
Conscious Sedation Pre-Proced Time 17:00 ASA Score 2 For ASA 3 and 4: Consider anesthesia and medical clearance. Also, for patients with a history of failed moderate sedation consider anesthesia. Airway Lungs Heart ASA score ASA 1: a normal healthy patient ASA 2: a patient with a mild systemic disease (mid diabetes, controlled hypertension, obesity x ASA 3: a patient with a severe systemic disease that limits activity (angina, COPD, prior Myocardial infarction) ASA 4: a patient with an incapacitating disease that is a constant threat to life (CHF, renal failure) ASA 5: a moribund patient not expected to survive 24 hrs. (ruptured aneurysm) ASA 6: a declared brain- patient whose organs are being harvested. For emergent operations, add the letter E after the classification Mallampati Classification Grade 3 Sedation Plan Analgesia, Amnesia, Plan communicated to team members, Discussed options with patient/fam, Discussed risks with patient/fam The patient is an appropriate candidate to undergo the planned procedure, sedation, and anesthesia. The patient immediately re-assessed prior to indication. RIK MILLARD MD Oct 15, 2021 18:15
--- NOTE | 2021-10-15 18:18 | Cardiac Cath Report ---
Cardiac Cath Report Physician (s)/Mail Clerk (s) Physician RIK MILLARD MD Pre-Procedure Diagnosis Pre-Procedure Diagnosis: Non-ST elevation myocardial infarction Post-Procedure Note Procedure Start Date: Oct 15, 2021 Name of Procedure: Left heart catheterization Findings/Procedure Note PROCEDURE NOTE: 81-year-old lady with history of paroxysmal atrial fibrillation, admitted with change in mental status, right-sided weakness, atrial fibrillation with rapid ventricular response, abnormal EKG and had elevated troponin, emergency cardiac catheterization was advised. After explaining the procedure to the patient, all pros and cons were explained, all questions were answered. The patient signed the consent and then she was placed on the cardiac catheterization laboratory. Groin was prepped SL fashion local anesthesia was used. Sheath placed in the right femoral artery. Yvonne right and left catheter were used to access the coronary system. Pigtail was used to access the left ventricular cavity. Left ventriculogram was done At the end of the procedure the sheath was removed. Closure device was used FINDINGS: Hemodynamics LV 147/30, end-diastolic pressure of 30 Aorta 152/99 mean of 104 ANATOMY: Left Main is free of obstructive disease Left Anterior Descending is mildly calcified with mild to moderate disease nonobstructive disease Left Circumflex is nondominant artery with mild to moderate disease none obstructive disease Right Coronary Artery is large dominant artery with no significant obstructive disease LV Gram was done showing hyperactive ventricle with normal systolic function ejection fraction 60% CONCLUSION: 1. Calcified coronary system with mild to moderate disease nonobstructive disease 2. Normal left ventricular size and systolic function ejection fraction 60%, elevated left ventricular end-diastolic pressure DISCUSSION AND RECOMMENDATION: Patient had elevated troponin probably due to hypoxemia and respiratory failure in addition to left ventricular hypertrophy and tachycardia. Anesthesia Type: Conscious Sedation Estimated blood loss (mL): 15 ml Contrast Amount: 62 ml Total Radiation Dose: 403 mGy Post-Procedure Diagnosis Post-operative diagnosis: Non-ST elevation myocardial infarction Coronary artery disease Atrial fibrillation CVA RIK MILLARD MD Oct 15, 2021 18:18
[2021-10-15] MEDS ORDERED: PIPERACILLIN SODIUM/TAZOBACTAM 4.5 GM in NS (IVPB) 100 ML IV NR (19:00)
[2021-10-15] MEDS ORDERED: VANCOMYCIN 1500 MG/NS 500 ML IVPB IV NR ×2 (19:00)
[2021-10-15] MEDS ORDERED: DexMEDEtomidine 250 ML DRIP 250 ML IV ONE (19:29)
[2021-10-15] MEDS ORDERED: DexMEDEtomidine 250 ML DRIP 250 ML IV SCH (19:45)
[2021-10-15] MEDS ORDERED: DexMEDEtomidine 250 ML DRIP 250 ML IV PRN (19:45)
[2021-10-15] MEDS ORDERED: fentaNYL INJ 100 MCG/2 ML AMP IVP PRN (19:45)
--- NOTE | 2021-10-15 19:59 | Tele-ICU Consult ---
Progress Note 81F with pHTN, chronic resp failure on 2-3L home O2, CAD, afib, HTN, hypothyroid found down with unknown downtime. EMS called for wellness check, found patient sitting on bathroom floor, unable to stand, unsure of why she was on the floor. O2 was off. Unsure if had taken AM meds. Had last been seen by a friend the day prior. In ER she was found to be in afib with RVR. She could speak but was confused. Troponin found to be 5.1, taken for urgent cath. - AMS: found to have NIH 5 on arrival. Stroke alert called, [facility] neuro consulted. Patient not a candidate for tpa due to unknown downtime. 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 Would avoid further benzos (versed 2 mg in microbiology lab manager). Will give fentanyl for pain control, initiate precedex. - troponemia: taken for urgent cath, mild to moderate nonobstructive disease, no culprit lesions. No intervention performed. - prolonged downtime: reported to be sitting on EMS arrival. Having been able to move around greatly improves prognosis. Will check CK now and add on to prior labs - lactic acidosis: secondary to RVR with hypoperfusion vs rhabdo vs prolonged hypoxia (off O2 for unknown time) vs sepsis. Repeat sent. Differential being addressed directly. - sepsis: zosyn, vanco initiated. Will send cultures if not already done. Procal sent, borderline at 0.80 - afib: initiated on cardizem gtt, cardiology managing. Therapuetic lovenox ordered. Focused Exam Lactate Level 10/15/21 16:36: Lactic Acid Level 5.28*H Height, Weight, BMI Height: 5'0.50" Weight: 176lbs. 0.0oz. 79.912302sf; 25.00 BMI Method: Lactic Acid Level Laboratory Tests Test 10/15/21 16:36 Lactic Acid Level 5.28 MMOL/L (0.50-2.00) *H JOSESITO MARION MD Oct 15, 2021 19:59
[2021-10-15] MEDS: ENOXAPARIN 80 MG/0.8 ML (LOVENOX) SYR SC SCH (20:12)
[2021-10-15] MEDS: NS IV 1000 ML 1,000 ML IV SCH ×2 (20:13→23:39)
[2021-10-15] MEDS: fentaNYL INJ 100 MCG/2 ML AMP IVP PRN (21:30)
[2021-10-16] MEDS: PIPERACILLIN SODIUM/TAZOBACTAM 4.5 GM in NS (IVPB) 100 ML IV SCH ×3 (00:43→17:22)
[2021-10-16] MEDS: fentaNYL INJ 100 MCG/2 ML AMP IVP PRN ×4 (02:07→20:08)
[2021-10-16 04:46] LABS: HEMATOCRIT 38 % (35-52); HEMOGLOBIN 11.2 g/dL (11.5-16.0); MEAN CORPUSCULAR HEMOGLOBIN 23 pg (25-34); MEAN CORPUSCULAR HGB CONC 30 g/dL (32-36); MEAN CORPUSCULAR VOLUME 76 fL (80-99); MEAN PLATELET VOLUME 11.2 fL (9.0-12.2); PLATELET COUNT 243 10^3/uL (130-400); WHITE BLOOD COUNT 15.5 10^3/uL (4.3-11.0)
[2021-10-16 05:04] LABS: POTASSIUM 3.4 MMOL/L (3.6-5.0)
[2021-10-16 05:05] LABS: CALCIUM 10.4 MG/DL (8.5-10.1)
[2021-10-16 05:09] LABS: CREATININE SERUM 0.83 MG/DL (0.60-1.30)
[2021-10-16 05:38] LABS: PHOSPHORUS 4.1 MG/DL (2.3-4.7)
[2021-10-16 05:40] LABS: MAGNESIUM 1.8 MG/DL (1.6-2.4)
[2021-10-16] MEDS: POTASSIUM CL 10MEQ/50ML IVPB 50 ML IV SCH (05:44)
[2021-10-16] MEDS: KCL 20 MEQ TAB (K-DUR) PO SCH (05:44)
[2021-10-16] MEDS: ENOXAPARIN 80 MG/0.8 ML (LOVENOX) SYR SC SCH ×2 (05:45→18:00)
[2021-10-16] MEDS: MAGNESIUM 1 GM/100 ML IVPB 100 ML IV SCH (06:06)
[2021-10-16] MEDS ORDERED: KCL 20 MEQ TAB (K-DUR) PO ONE ×2 (08:00→14:00)
--- NOTE | 2021-10-16 09:00 | Tele-ICU Progress Note ---
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 0.0oz. 79.862528wq; 24.82 BMI Method: Laboratory Tests 10/15/21 15:41 10/15/21 16:13 10/16/21 04:28 Results/Procedures Lab Laboratory Tests 10/15/21 15:41 10/15/21 16:13 10/16/21 04:28 MARIA ESTHER CANNON MD Oct 16, 2021 09:00
[2021-10-16 09:16] LABS: ALBUMIN 3.2 GM/DL (3.2-4.5)
[2021-10-16 09:19] LABS: TOTAL PROTEIN 6.3 GM/DL (6.4-8.2)
[2021-10-16 09:21] LABS: BILIRUBIN,TOTAL 2.2 MG/DL (0.1-1.0)
[2021-10-16 09:25] LABS: BILIRUBIN,DIRECT 0.9 MG/DL (0.0-0.3); BILIRUBIN,INDIRECT 1.3 MG/DL
[2021-10-16] MEDS ORDERED: NS 100 ML (IVPB) BAG IV ONE (09:30)
[2021-10-16] MEDS ORDERED: CATHETER FLUSH 10 ML SYR IV PRN (09:30)
[2021-10-16] MEDS ORDERED: HOLD METFORMIN - RECEIVED CONTRAST 20 ML VIAL IV SCH (09:30)
[2021-10-16] MEDS ORDERED: IOHEXOL 350 MG/ML 100 ML (OMNIPAQUE 350) VIAL IV ONE (09:30)
--- NOTE | 2021-10-16 09:36 | Cardiology Progress Note ---
Subjective Date Seen by Provider: Oct 16, 2021 Time Seen by Provider: 09:34 Subjective/Events-last exam Patient is laying down in bed, lethargic, confused. Denied any chest pain. Review of Systems General: No Chills, No Night Sweats; Fatigue, Malaise; No Appetite, No Other HEENT: No Head Aches, No Visual Changes, No Eye Pain, No Ear Pain, No Dysphasia, No Sinus Congestion, No Post Nasal Drip, No Sore Throat, No Other Pulmonary: Dyspnea; No Cough, No Pleuritic Chest Pain, No Other Cardiovascular: No: Chest Pain, Palpitations, Orthopnea, Paroxysmal Noc. Dyspnea, Edema, Lt Headedness, Other Focused Exam Lactate Level 10/15/21 16:36: Lactic Acid Level 5.28*H 10/15/21 19:54: Lactic Acid Level 2.44*H 10/15/21 22:03: Lactic Acid Level 2.22*H Objective-Cardiology Exam Last Set of Vital Signs Vital Signs 10/16/21 10/16/21 07:30 09:00 Pulse 100 Resp 19 B/P (MAP) 145/103 Pulse Ox 95 O2 Delivery Vapotherm O2 Flow Rate 25.00 40.00 FiO2 50 I&O Intake and Output 10/16/21 00:00 Intake Total 1725.7 ml Output Total 450 ml Balance 1275.7 ml Intake Oral 0 ml IV Total 1725.7 ml Output Urine Total 450 ml Daily Weight Change Unsure General: Alert, Oriented X3, Cooperative HEENT: Atraumatic, PERRLA Neck: Supple, No JVD, No Thyromegaly Lungs: Normal Air Movement, Other (Bilateral rhonchi) Heart: Normal S1, Normal S2, Other (Atrial fibrillation, systolic murmur at the left sternal border) Abdomen: Normal Bowel Sounds, Soft, No Tenderness, No Hepatosplenomegaly, No Masses Extremities: No Clubbing, No Cyanosis, No Edema, Normal Pulses, No Tenderness/Swelling Skin: No Rashes, No Breakdown, No Significant Lesion Neuro: Normal Speech, Normal Tone, Sensation Intact, Other (Right side weakness) Psych/Mental Status: Mood NL, Other (Confused) Results Lab Laboratory Tests 10/15/21 15:41 10/15/21 16:13 10/16/21 04:28 A/P-Cardiology Admission Diagnosis Non-ST elevation myocardial infarction, type II myocardial infarction Atrial fibrillation with rapid ventricular response Subacute CVA Acute respiratory failure Assessment/Plan Non-ST elevation myocardial infarction, elevated troponin, emergency cardiac catheterization was carried out showing calcified coronary artery with mild to moderate disease nonobstructive disease. Atrial fibrillation with rapid ventricular response, had history of paroxysmal atrial fibrillation, currently on Cardizem drip and Lovenox. Continue on aspirin and monitor Change in mental status, probably secondary to hypoxemia and respiratory failure. Questionable underlying CVA. Maintained on Lovenox, NIH was 5, did not qualify for TPA. Acute respiratory failure, shortness of breath, currently on Vapotherm, probably will need BiPAP, managed by medical team questionable underlying pneumonia started on empiric antibiotic Sepsis, receiving antibiotics, managed by medical team Subacute CVA. Patient has right-sided weakness. Probably was the cause of her weakness and fall over 24 hours ago. Hypertension, tolerating Cardizem drip RIK MILLARD MD Oct 16, 2021 09:36
[2021-10-16] MEDS ORDERED: DILT360C30 PO (09:41)
[2021-10-16] MEDS ORDERED: ALLO100T PO (09:41)
[2021-10-16] MEDS ORDERED: ISOS30TA82 PO (09:41)
[2021-10-16] MEDS ORDERED: POTA-179 PO (09:41)
--- NOTE | 2021-10-16 11:24 | Diagnostic Imaging Report ---
INDICATION: Respiratory failure CTA chest, abdomen and pelvis Thin axial sections through the chest, abdomen and pelvis are obtained following intravenous contrast bolus. Multiplanar MIP images were reconstructed and reviewed. All CT scans use one or more of the following dose optimizing techniques: automated exposure control, MA and/or KvP adjustment based on patient size and exam type or iterative reconstruction. The pulmonary arterial branches are well opacified, widely patent. There is no filling defect and there is no PE. Pulmonary arterial branches are somewhat prominent. There is prominence of the right heart. Underlying pulmonary hypertension and elevated right heart pressures suspected. Again this does not appear secondary to acute PE. The thoracic aorta is atherosclerotic but nonaneurysmal appeared nonacute. This patient has bilateral nonloculated pleural effusions greater right with the right layering to an average depth of 5.5 cm. The subjacent dependent atelectatic consolidations of the lower lobes greater right. There is some generalized septal thickening suggestive of a component of interstitial edema. There is coronary artery atherosclerotic chronic vascular calcifications and calcifications of the mitral annulus. There is no pneumothorax. No soft tissue density, lung mass or suspicious nodularity. There is no thoracic lymphadenopathy. The visualized upper abdomen nonacute. Postcontrast enhanced abdominal pelvic CT is performed with sagittal and coronal reconstructions without prior. Urinary bladder is empty limiting its evaluation. There is no hydroureteronephrosis. Liver, gallbladder, bile ducts, spleen and adrenals unremarkable. There is a unilocular cyst associated with the pancreatic neck. This had no enhancing complex septated or soft tissue component it measured 3.6 x 2.5 cm. No findings of acute pancreatitis. There is no gallstone. There is no bile duct dilatation. The spleen nonfocal and normal in size. The adrenal glands are negative. The atherosclerotic aortoiliac vessels patent and nonaneurysmal and nonacute. There is no ascites. Subcutaneous edema in the groins and there is prominent bilateral greater right groin and ventral upper thigh venous collaterals. No identifiable iliofemoral or caval venous thrombus. IMPRESSION: CT CHEST: No evidence for pulmonary arterial embolus, bilateral effusions, nonloculated with dependent atelectasis, cardiomegaly as well as likely some interstitial edema. Elevated right heart pressures suggested. Abdomen pelvis: A unilocular cystic lesion associated with the pancreatic neck without soft tissue component 3.6 cm. This may be old CSF pseudocyst but no evidence for acute pancreatitis. Cystic neoplasm of the pancreas could not be excluded. If no remote priors are available to confirm its long-term stability consider follow-up in 6 months time. This is very likely a benign or nonaggressive lesion. Femoral and groin venous varicosities and collateral channels without demonstrated venous thrombus. No bowel, biliary or urinary tract obstruction. Dictated by: Dictated on workstation # [id number]
--- NOTE | 2021-10-16 12:48 | Physical Therapy Progress Note ---
Therapy Progress Note Patient on hold today per nurse. Will check back Monday. JEANINE CHANDLER PT Oct 16, 2021 12:48
[2021-10-16] MEDS ORDERED: hydrALAZINE (APESOLINE) 20 MG/ML VIAL IV PRN (13:00)
[2021-10-16] MEDS: ASPIRIN E.C. 81 MG (ECOTRIN) TAB PO SCH (14:00)
[2021-10-16] MEDS: lisINopril 40 MG (PRINIVIL) TABLET PO SCH (14:43)
[2021-10-16] MEDS: DIGOXIN 0.125 MG (LANOXIN) TAB PO SCH (14:44)
[2021-10-16] MEDS: dilTIAZem DRIP PRE-MIX 125 ML IV SCH (14:57)
[2021-10-16] MEDS: VANCOMYCIN 1 GM/NS 250 ML IVPB IV SCH ×2 (18:01)
[2021-10-16] MEDS: NS IV 500 ML 500 ML IV SCH (18:04)
--- NOTE | 2021-10-16 19:11 | History & Physical-Hospitalist ---
History of Present Illness HPI/Chief Complaint Radha Ramsey is an 81 year old female with PMH HTN, CAD, hypothyroidism, atrial fibrillation, chronic respiratory failure with hypoxia on 2-3 L, who was found down on her bathroom floor. She was down for an unknown amount of time. She is unable to provide any history. She has family at the bedside. She reportedly lives independently and leads a relatively "normal" life. She was found to have right sided weakness on arrival and underwent CT head which showed no acute abnormalities. She was also found to have a significantly elevated troponin and was taken for urgent heart cath. She was found to have no significant coronary artery disease and no intervention was required. She was transferred to the ICU. Her care has been transferred to the hospitalist service. Source: patient, family Exam Limitations: clinical condition Date Seen 10/16/21 Time Seen by a Provider: 09:30 Attending Physician Marina Orozco MD PCP No,Local Physician Referring Physician Date of Admission Home Medications & Allergies Home Medications Reviewed patient Home Medication Reconciliation performed by pharmacy medication reconciliations research and development technician and/or nursing. Patients Allergies have been reviewed. Allergies Allergies Coded Allergies propoxyphene (Verified Allergy, Severe, CP, 09/27/18) amiodarone (Verified Allergy, Intermediate, Hives, 05/27/20) hives, itching, redness amlodipine (Verified Allergy, Intermediate, FEET SWELLING, 09/27/18) aliskiren (Verified Allergy, Unknown, 09/27/18) Past Mhuxqok-Rfeoqb-Kucley Hx Patient Social History Tobacco Use?: No Substance use?: No Alcohol Use?: No Pt feels they are or have been: No Immunizations Up To Date Date of Pneumonia Vaccine: May 25, 2019 Seasonal Allergies Seasonal Allergies: Yes Current Status Advance Directives: Unable to obtain Communicates: Verbally Primary Language: Syrian Preferred Spoken Language: Syrian Sensory deficits: Hearing impairment Past Medical History Sleep Apnea Currently Using CPAP: No Currently Using BIPAP: No Sexually Transmitted Disease: No HIV/AIDS: No Gastroesophageal Reflux, Diverticulosis Fibromyalgia, Chronic Back Pain Cataract Loss of Vision: Denies Hearing Impairment: Hard of Hearing, Hearing Aide Right Pruritis Blood Disorders: No Adverse Reaction/Blood Tranf: No Family Medical History No Pertinent Family Hx Review of Systems Constitutional: see HPI, weakness Physical Exam Physical Exam Vital Signs Vital Signs - First Documented 10/15/21 10/15/21 15:27 20:00 Temp 35.9 Pulse 114 Resp 30 B/P (MAP) 187/110 (135) Pulse Ox 92 O2 Delivery Nasal Cannula O2 Flow Rate 6.00 FiO2 90 Capillary Refill : Less Than 3 Seconds Height, Weight, BMI Height: 5'0.50" Weight: 176lbs. 0.0oz. 79.810543po; 24.82 BMI Method: General Appearance: No Apparent Distress, WD/WN HEENT: PERRL/EOMI, Pharynx Normal Neck: Normal Inspection, Supple Respiratory: Lungs Clear, No Respiratory Distress Cardiovascular: No Murmur, Irregularly Irregular Gastrointestinal: Normal Bowel Sounds, Soft Extremity: Normal Inspection, No Pedal Edema Neurologic/Psychiatric: Alert, Disoriented, Motor Weakness (right upper extremity) Skin: Normal Color, Warm/Dry Results Results/Procedures Labs Laboratory Tests 10/15/21 15:41 10/15/21 16:13 10/16/21 04:28 10/17/21 04:23 Patient resulted labs reviewed. Imaging: Reviewed Imaging Report Assessment/Plan Admission Diagnosis Septic shock Admission Status: Inpatient Order (span 2 midnights) Reason for Inpatient Admission: Possible stroke Assessment and Plan Septic shock Acute on chronic respiratory failure with hypoxia Pneumonia Lactic acidosis Elevated LFTs NSTEMI SIRS+ with leukocytosis and tachycardia Possible pneumonia on chest imaging Obtain CT chest/abdomen/pelvis UA not indicative of UTI Blood cultures pending Procal elevated Vanc and Zosyn LFTs elevated, monitor Troponin elevated Left heart cath without significant CAD Cardiology following TeleICU following Possible stroke CT negative Obtain MRI Monday Continue ASA AFib with RVR Cardizem Lovenox Cardiology following Rhabdomyolysis IV fluids Improving HTN CAD Hypothyroidism Continue home meds Critical Care Critically Ill Patient Diagnosis/Problems Diagnosis/Problems (1) Septic shock Status: Acute (2) Acute on chronic respiratory failure with hypoxia Status: Acute (3) PNA (pneumonia) Status: Acute (4) Metabolic encephalopathy Status: Acute (5) Right sided weakness Status: Acute (6) Elevated LFTs Status: Acute (7) Rhabdomyolysis Status: Acute (8) HTN (hypertension) Status: Chronic (9) CAD (coronary artery disease) Status: Chronic (10) Hypothyroidism Status: Chronic (11) Atrial fibrillation with RVR Status: Acute (12) Lactic acidosis Status: Resolved Resolution Date/Time: 05/28/20 @ 14:32 (13) NSTEMI (non-ST elevated myocardial infarction) Status: Acute Clinical Quality Measures Stroke: Symptoms onset unknown: Yes MARINA OROZCO MD Oct 16, 2021 19:11
[2021-10-16] MEDS ORDERED: NS IV 1000 ML 1,000 ML ONE (20:05)
[2021-10-16] MEDS: OXYBUTYNIN (DITROPAN) 5 MG TAB PO SCH (20:08)
[2021-10-17] MEDS: PIPERACILLIN SODIUM/TAZOBACTAM 4.5 GM in NS (IVPB) 100 ML IV SCH ×3 (00:28→16:36)
[2021-10-17] MEDS: dilTIAZem DRIP PRE-MIX 125 ML IV SCH (02:40)
[2021-10-17] MEDS: fentaNYL INJ 100 MCG/2 ML AMP IVP PRN (05:01)
[2021-10-17 05:05] LABS: POTASSIUM 3.5 MMOL/L (3.6-5.0)
[2021-10-17 05:07] LABS: CALCIUM 9.6 MG/DL (8.5-10.1)
[2021-10-17 05:11] LABS: CREATININE SERUM 0.87 MG/DL (0.60-1.30); PHOSPHORUS 2.2 MG/DL (2.3-4.7)
[2021-10-17 05:13] LABS: MAGNESIUM 1.9 MG/DL (1.6-2.4)
[2021-10-17] MEDS: NS IV 500 ML 500 ML IV SCH ×2 (05:42→21:15)
[2021-10-17] MEDS: MAGNESIUM 1 GM/100 ML IVPB 100 ML IV SCH (05:42)
[2021-10-17] MEDS: POTASSIUM CL 10MEQ/50ML IVPB 50 ML IV SCH (05:42)
[2021-10-17] MEDS: KCL 20 MEQ TAB (K-DUR) PO SCH (05:43)
[2021-10-17 05:52] LABS: BASOPHILS % (AUTO) 0 % (0-10); EOSINOPHILS % (AUTO) 0 % (0-10); HEMATOCRIT 37 % (35-52); HEMOGLOBIN 10.8 g/dL (11.5-16.0); LYMPHOCYTES # (AUTO) 1.8 10^3/uL (1.0-4.0); LYMPHOCYTES % (AUTO) 13 % (12-44); MEAN CORPUSCULAR HEMOGLOBIN 23 pg (25-34); MEAN CORPUSCULAR HGB CONC 30 g/dL (32-36); MEAN CORPUSCULAR VOLUME 76 fL (80-99); MEAN PLATELET VOLUME 11.2 fL (9.0-12.2); MONOCYTES # (AUTO) 1.4 10^3/uL (0.0-1.0); MONOCYTES % (AUTO) 10 % (0-12); NEUTROPHILS # (AUTO) 10.6 10^3/uL (1.8-7.8); NEUTROPHILS % (AUTO) 77 % (42-75); PLATELET COUNT 235 10^3/uL (130-400); WHITE BLOOD COUNT 13.9 10^3/uL (4.3-11.0)
[2021-10-17] MEDS: ENOXAPARIN 80 MG/0.8 ML (LOVENOX) SYR SC SCH (06:23)
[2021-10-17] MEDS ORDERED: KCL 20 MEQ TAB (K-DUR) PO ONE (08:00)
[2021-10-17] MEDS: ASPIRIN E.C. 81 MG (ECOTRIN) TAB PO SCH (08:59)
[2021-10-17] MEDS: OXYBUTYNIN (DITROPAN) 5 MG TAB PO SCH ×2 (09:00→21:15)
[2021-10-17] MEDS ORDERED: lisINopril 40 MG (PRINIVIL) TABLET PO SCH (09:00)
[2021-10-17] MEDS ORDERED: DIGOXIN 0.125 MG (LANOXIN) TAB PO SCH (09:00)
[2021-10-17] MEDS: LEVOTHYROXINE 75 MCG (LEVOTHROID) TABLET PO SCH (09:00)
[2021-10-17] MEDS: lisINopril 40 MG (PRINIVIL) TABLET PO SCH (09:00)
--- NOTE | 2021-10-17 09:00 | Cardiology Progress Note ---
Subjective Date Seen by Provider: Oct 17, 2021 Time Seen by Provider: 08:59 Subjective/Events-last exam Patient is laying down in bed, complaining of fatigue and loss of energy. No chest pain was reported. Review of Systems General: No Chills, No Night Sweats; Fatigue, Malaise; No Appetite, No Other HEENT: No Head Aches, No Visual Changes, No Eye Pain, No Ear Pain, No Dysphasia, No Sinus Congestion, No Post Nasal Drip, No Sore Throat, No Other Pulmonary: No Dyspnea, No Cough, No Pleuritic Chest Pain, No Other Cardiovascular: No: Chest Pain, Palpitations, Orthopnea, Paroxysmal Noc. Dyspnea, Edema, Lt Headedness, Other Focused Exam Lactate Level 10/15/21 16:36: Lactic Acid Level 5.28*H 10/15/21 19:54: Lactic Acid Level 2.44*H 10/15/21 22:03: Lactic Acid Level 2.22*H Objective-Cardiology Exam Last Set of Vital Signs Vital Signs 10/17/21 10/17/21 07:46 08:00 Temp 36.8 Pulse 90 Resp 20 B/P (MAP) 132/95 Pulse Ox 92 O2 Delivery Vapotherm O2 Flow Rate 20.00 40.00 FiO2 40 I&O Intake and Output 10/16/21 23:59 Intake Total 940 ml Output Total 775 ml Balance 165 ml Intake Oral 820 ml IV Total 120 ml Output Urine Total 775 ml General: Alert, Oriented X3, Cooperative HEENT: Atraumatic, PERRLA Neck: Supple, No JVD, No Thyromegaly Lungs: Normal Air Movement, Other (Bilateral rhonchi) Heart: Normal S1, Normal S2, Other (Atrial fibrillation, systolic murmur at the left sternal border) Abdomen: Normal Bowel Sounds, Soft, No Tenderness, No Hepatosplenomegaly, No Masses Extremities: No Clubbing, No Cyanosis, No Edema, Normal Pulses, No Tenderness/Swelling Skin: No Rashes, No Breakdown, No Significant Lesion Neuro: Normal Speech, Normal Tone, Sensation Intact, Other (Right side weakness) Psych/Mental Status: Mood NL, Other (Confused) Results Lab Laboratory Tests 10/17/21 04:23 A/P-Cardiology Admission Diagnosis Non-ST elevation myocardial infarction, type II myocardial infarction Atrial fibrillation with rapid ventricular response Subacute CVA Acute respiratory failure Assessment/Plan Non-ST elevation myocardial infarction, elevated troponin, emergency cardiac catheterization was carried out showing calcified coronary artery with mild to moderate disease nonobstructive disease. Probably type II myocardial infarction secondary to atrial fibrillation and tachycardia. Atrial fibrillation with rapid ventricular response, had history of paroxysmal atrial fibrillation, I will start Eliquis and oral Cardizem Change in mental status, probably secondary to hypoxemia and respiratory failure. Questionable underlying CVA. Maintained on Lovenox, NIH was 5, did not qualify for TPA. Acute respiratory failure, shortness of breath, improving. Feeling better. Managed by primary care team Sepsis, receiving antibiotics, managed by medical team Subacute CVA. Patient has right-sided weakness. Probably was the cause of her weakness and fall over 24 hours ago. Hypertension, monitor blood pressure RIK MILLARD MD Oct 17, 2021 09:00
[2021-10-17] MEDS: DIGOXIN 0.125 MG (LANOXIN) TAB PO SCH (09:59)
[2021-10-17] MEDS: APIXABAN 5 MG (ELIQUIS) TABLET PO SCH ×2 (10:00→21:15)
[2021-10-17] MEDS ORDERED: OXYBUTYNIN (DITROPAN) 5 MG TAB PO ONE (10:00)
--- NOTE | 2021-10-17 10:03 | Progress Note - Hospitalist ---
Subjective HPI/CC On Admission Date Seen by Provider: Oct 17, 2021 Time Seen by Provider: 09:40 Radha Ramsey is an 81 year old female with PMH HTN, CAD, hypothyroidism, atrial fibrillation, chronic respiratory failure with hypoxia on 2-3 L, who was found down on her bathroom floor. She was down for an unknown amount of time. She is unable to provide any history. She has family at the bedside. She reportedly lives independently and leads a relatively "normal" life. She was found to have right sided weakness on arrival and underwent CT head which showed no acute abnormalities. She was also found to have a significantly elevated troponin and was taken for urgent heart cath. She was found to have no significant coronary artery disease and no intervention was required. She was transferred to the ICU. Her care has been transferred to the hospitalist service. Subjective/Events-last exam She is doing much better today. She is awake and talking. She has her glasses and hearing aids. She has bladder pain. Her guardado was just removed. She is uncomfortable. She has body aches. Focused Exam Lactate Level 10/15/21 16:36: Lactic Acid Level 5.28*H 10/15/21 19:54: Lactic Acid Level 2.44*H 10/15/21 22:03: Lactic Acid Level 2.22*H Objective Exam Vital Signs Vital Signs Date Time Temp Pulse Resp B/P (MAP) Pulse Ox O2 Delivery O2 Flow Rate FiO2 10/17/21 09:00 86 35 140/83 91 Vapotherm 20.00 40.00 10/17/21 08:00 36.8 10/17/21 07:46 40 Capillary Refill : Less Than 3 Seconds General Appearance: WD/WN, Anxious, Mild Distress (uncomfortable) Respiratory: Decreased Breath Sounds, Respiratory Distress (tachypnea) Cardiovascular: Systolic Murmur, Irregularly Irregular, Tachycardia Gastrointestinal: Normal Bowel Sounds, Non Tender, Soft Extremity: Normal Inspection, Pedal Edema, Other (lower extremities tender to palpation) Neurologic/Psychiatric: Alert, Motor Weakness (right > left upper extremity), Other (uncomfortable, cooperative) Skin: Normal Color, Warm/Dry Results/Procedures Lab Laboratory Tests 10/17/21 04:23 Patient resulted labs reviewed. Imaging: Reviewed Imaging Report Assessment/Plan Assessment and Plan Assess & Plan/Chief Complaint Septic shock Acute on chronic respiratory failure with hypoxia Pneumonia Elevated LFTs NSTEMI Metabolic encephalopathy Mental status improving CT chest/abdomen/pelvis with bilateral pleural effusions, suggestive of increased right heart pressures Blood cultures with no growth Procal elevated Continue Vanc and Zosyn LFTs elevated, monitor Troponin elevated Left heart cath without significant CAD Cardiology following TeleICU following Possible stroke CT negative Obtain MRI tomorrow Continue ASA AFib with RVR Cardizem Consider transitioning to oral Cardizem Lovenox Cardiology following Rhabdomyolysis IV fluids Improving HTN CAD Hypothyroidism Continue home meds Lactic acidosis, resolved Critical Care Critically Ill Patient Diagnosis/Problems Diagnosis/Problems (1) Septic shock Status: Acute (2) Acute on chronic respiratory failure with hypoxia Status: Acute (3) PNA (pneumonia) Status: Acute (4) Metabolic encephalopathy Status: Acute (5) Right sided weakness Status: Acute (6) Elevated LFTs Status: Acute (7) Rhabdomyolysis Status: Acute (8) HTN (hypertension) Status: Chronic (9) CAD (coronary artery disease) Status: Chronic (10) Hypothyroidism Status: Chronic (11) Atrial fibrillation with RVR Status: Acute (12) Lactic acidosis Status: Resolved Resolution Date/Time: 05/28/20 @ 14:32 (13) NSTEMI (non-ST elevated myocardial infarction) Status: Acute Clinical Quality Measures Stroke: Symptoms onset unknown: Yes MARINA OROZCO MD Oct 17, 2021 10:03
--- NOTE | 2021-10-17 10:27 | Tele-ICU Progress Note ---
Subjective Date Seen by a Provider: Oct 17, 2021 Time Seen by a Provider: 10:26 Sepsis Event Evaluation Height, Weight, BMI Height: 5'0.50" Weight: 176lbs. 0.0oz. 79.465213he; 24.82 BMI Method: Focused Exam Lactate Level 10/15/21 16:36: Lactic Acid Level 5.28*H 10/15/21 19:54: Lactic Acid Level 2.44*H 10/15/21 22:03: Lactic Acid Level 2.22*H Exam Exam Patient acknowledged, consented, and participated in this virtual visit which was conducted using real time audio/video Vital Signs Date Time Temp Pulse Resp B/P (MAP) Pulse Ox O2 Delivery O2 Flow Rate FiO2 10/17/21 09:00 86 35 140/83 91 Vapotherm 20.00 40.00 10/17/21 08:00 90 20 132/95 92 Vapotherm 20.00 40.00 10/17/21 08:00 36.8 10/17/21 07:48 Vapotherm 20.00 40.00 10/17/21 07:46 95 Vapotherm 20.00 40 10/17/21 07:00 94 10/17/21 07:00 85 28 134/92 98 Vapotherm 30.00 60.00 10/17/21 06:00 83 21 121/76 98 Vapotherm 30.00 60.00 10/17/21 05:00 94 34 147/95 91 Vapotherm 30.00 60.00 10/17/21 04:23 36.5 Vapotherm 30.00 60.00 10/17/21 04:22 95 Vapotherm 30.00 60 10/17/21 04:00 82 25 141/90 96 Vapotherm 30.00 60.00 10/17/21 03:00 106 23 143/97 95 Vapotherm 30.00 60.00 10/17/21 02:00 89 25 124/73 95 Vapotherm 30.00 60.00 10/17/21 01:00 98 32 133/99 93 Vapotherm 30.00 60.00 10/17/21 01:00 90 10/17/21 00:22 94 Vapotherm 30.00 60 10/17/21 00:00 77 27 127/81 97 Vapotherm 30.00 60.00 10/16/21 23:00 36.7 Vapotherm 30.00 60.00 10/16/21 23:00 90 25 143/87 94 Vapotherm 30.00 60.00 10/16/21 22:21 93 Vapotherm 25.00 50 10/16/21 22:00 96 126/72 96 Vapotherm 30.00 60.00 10/16/21 21:00 93 28 121/80 97 Vapotherm 30.00 60.00 10/16/21 20:11 36.6 Vapotherm 30.00 60.00 10/16/21 20:00 85 27 132/82 96 Vapotherm 25.00 40.00 10/16/21 20:00 95 Vapotherm 30.00 60 10/16/21 19:00 111 10/16/21 19:00 84 136/95 91 Vapotherm 25.00 40.00 10/16/21 18:35 92 Vapotherm 25.00 50 10/16/21 18:00 93 158/85 94 Vapotherm 25.00 40.00 10/16/21 17:00 94 30 150/88 Vapotherm 25.00 40.00 10/16/21 16:17 94 Vapotherm 25.00 50 10/16/21 16:00 95 18 141/94 90 Vapotherm 25.00 40.00 10/16/21 15:00 93 21 147/107 92 Vapotherm 25.00 40.00 10/16/21 14:51 90 Vapotherm 25.00 50 10/16/21 14:00 102 27 165/92 92 Vapotherm 25.00 40.00 10/16/21 13:00 98 19 159/112 93 Vapotherm 25.00 40.00 10/16/21 12:38 88 10/16/21 12:15 94 Vapotherm 25.00 50 10/16/21 12:00 90 28 150/102 94 Vapotherm 25.00 40.00 10/16/21 11:30 36.1 10/16/21 11:00 92 35 148/77 94 Vapotherm 25.00 40.00 I & O 10/17/21 07:00 Intake Total 1065 ml Output Total 775 ml Balance 290 ml Height & Weight Height: 5'0.50" Weight: 176lbs. 0.0oz. [id number]; 24.82 BMI Method: General Appearance: WD/WN, Anxious, Mild Distress (uncomfortable) HEENT: PERRL/EOMI, Pharynx Normal Neck: Normal Inspection, Supple Respiratory: Decreased Breath Sounds, Respiratory Distress (tachypnea) Cardiovascular: Systolic Murmur, Irregularly Irregular, Tachycardia Capillary Refill: Less Than 3 Seconds Gastrointestinal: normal bowel sounds, non tender, soft; No distended, No guarding, No rebound Extremity: Normal Inspection, Pedal Edema, Other (lower extremities tender to palpation) Neurologic/Psychiatric: Alert, Motor Weakness (right > left upper extremity), O ther (uncomfortable, cooperative) Skin: Normal Color, Warm/Dry Lymphatic: No Adenopathy Results Lab Laboratory Tests 10/15/21 15:41 10/15/21 16:13 10/16/21 04:28 10/17/21 04:23 Assessment/Plan Assessment/Plan (Tele-ICU Physician , Progress Note ) Available chart/ vitals / labs / Images reviewed Video assessment done using teleICU camera, rest of exam as per RN Discussed with RN , EXAM PER RN Events overnight : Afebrile FiO2 - VT 20L 40 % I/O = Drips: Pressors: , hemodynamically stable Consultants: cards Hospital course: (10/15) 81/F- CVA, Nstemi--Afib-rvr, CCLab, calcifications and non obstructive disease. On home O2// vapotherm and cardizem gtt. A/P Sepsis , supected - sourse ? PNA ( blood cx 10/15 negative ) - Vanco / zosyn 10/16 Acute on chronic resp failure - NO PE on CTA 10/16/21 -FiO2 - VT 20L 40 % ( Chronic respiratory failure with hypoxia on 2-3 L Non-ST elevation myocardial infarction, type II MT - as per cards A fib RBR - cardizem gtt, po dig - AC with eliquis as per cards AMS - CTH - no acute abnorm 10/16 - suspected Subacute CVA. Patient has right-sided weakness. - as per cards Mild hematuris - catheter removed 10/17 - follow on eliquis Anxiety - precedex not started - will try xanax prn - Lines : peripg (Central Line Necessity Reviewed) Espinoza: removed 10/17 OG: Nutrition: Analgesia: Anxiety/ delirium VTE Prophylaxis: eliquis Stress Ulcer Prophylaxis: Plans in collaboration with bedside consultants and IM MDs. Discussed with RN to reach out if any questions or concerns A total of 33 minutes of critical care time was devoted to this patient today, required to treat and/or prevent further deterioration of critical care condition ( as above) . IRAM PADGETT MD Oct 17, 2021 10:27
[2021-10-17] MEDS: ALPRAZolam 0.25 MG (XANAX) TAB PO PRN ×2 (10:39→21:14)
[2021-10-17] MEDS ORDERED: TROUGH ORDER-PHARMACY XX NR (18:00)
[2021-10-17] MEDS: VANCOMYCIN 1 GM/NS 250 ML IVPB IV SCH ×2 (19:25)
[2021-10-17] MEDS ORDERED: OXYBUTYNIN (DITROPAN) 5 MG TAB PO SCH (21:00)
[2021-10-18] MEDS: PIPERACILLIN SODIUM/TAZOBACTAM 4.5 GM in NS (IVPB) 100 ML IV SCH ×3 (00:42→18:21)
[2021-10-18] MEDS: fentaNYL INJ 100 MCG/2 ML AMP IVP PRN (01:33)
[2021-10-18 05:44] LABS: BASOPHILS % (AUTO) 0 % (0-10); EOSINOPHILS # (AUTO) 0.1 10^3/uL (0.0-0.3); EOSINOPHILS % (AUTO) 1 % (0-10); HEMATOCRIT 35 % (35-52); HEMOGLOBIN 10.1 g/dL (11.5-16.0); LYMPHOCYTES # (AUTO) 1.8 10^3/uL (1.0-4.0); LYMPHOCYTES % (AUTO) 14 % (12-44); MEAN CORPUSCULAR HEMOGLOBIN 23 pg (25-34); MEAN CORPUSCULAR HGB CONC 29 g/dL (32-36); MEAN CORPUSCULAR VOLUME 79 fL (80-99); MEAN PLATELET VOLUME 10.6 fL (9.0-12.2); MONOCYTES # (AUTO) 1.4 10^3/uL (0.0-1.0); MONOCYTES % (AUTO) 11 % (0-12); NEUTROPHILS # (AUTO) 9.3 10^3/uL (1.8-7.8); NEUTROPHILS % (AUTO) 74 % (42-75); PLATELET COUNT 222 10^3/uL (130-400); WHITE BLOOD COUNT 12.7 10^3/uL (4.3-11.0)
[2021-10-18 06:01] LABS: ALBUMIN 3.1 GM/DL (3.2-4.5)
[2021-10-18] MEDS: POTASSIUM CL 10MEQ/50ML IVPB 50 ML IV SCH (06:02)
[2021-10-18 06:03] LABS: CALCIUM 9.2 MG/DL (8.5-10.1)
[2021-10-18] MEDS: KCL 20 MEQ TAB (K-DUR) PO SCH (06:03)
[2021-10-18] MEDS: MAGNESIUM 1 GM/100 ML IVPB 100 ML IV SCH (06:03)
[2021-10-18 06:06] LABS: BILIRUBIN,TOTAL 1.9 MG/DL (0.1-1.0)
[2021-10-18 06:07] LABS: PHOSPHORUS 2.3 MG/DL (2.3-4.7)
[2021-10-18 06:08] LABS: CREATININE SERUM 0.8 MG/DL (0.60-1.30)
[2021-10-18 06:09] LABS: BILIRUBIN,INDIRECT 0.9 MG/DL
[2021-10-18 06:10] LABS: MAGNESIUM 1.9 MG/DL (1.6-2.4)
[2021-10-18] MEDS: ASPIRIN E.C. 81 MG (ECOTRIN) TAB PO SCH (08:41)
[2021-10-18] MEDS: APIXABAN 5 MG (ELIQUIS) TABLET PO SCH ×2 (08:42→20:10)
[2021-10-18] MEDS: LEVOTHYROXINE 75 MCG (LEVOTHROID) TABLET PO SCH (08:42)
[2021-10-18] MEDS: OXYBUTYNIN (DITROPAN) 5 MG TAB PO SCH ×2 (08:42→20:10)
[2021-10-18] MEDS: lisINopril 40 MG (PRINIVIL) TABLET PO SCH (08:43)
[2021-10-18] MEDS: DIGOXIN 0.125 MG (LANOXIN) TAB PO SCH (08:43)
[2021-10-18] MEDS: ALPRAZolam 0.25 MG (XANAX) TAB PO PRN (08:45)
--- NOTE | 2021-10-18 10:08 | Cardiology Progress Note ---
Subjective Date Seen by Provider: Oct 18, 2021 Time Seen by Provider: 10:06 Subjective/Events-last exam Patient is laying down in bed, feeling better, still on Vapotherm. No chest pain Review of Systems General: No Chills, No Night Sweats; Fatigue, Malaise; No Appetite, No Other HEENT: No Head Aches, No Visual Changes, No Eye Pain, No Ear Pain, No Dysphasia, No Sinus Congestion, No Post Nasal Drip, No Sore Throat, No Other Pulmonary: Dyspnea; No Cough, No Pleuritic Chest Pain, No Other Cardiovascular: No: Chest Pain, Palpitations, Orthopnea, Paroxysmal Noc. Dyspnea, Edema, Lt Headedness, Other Focused Exam Lactate Level 10/15/21 16:36: Lactic Acid Level 5.28*H 10/15/21 19:54: Lactic Acid Level 2.44*H 10/15/21 22:03: Lactic Acid Level 2.22*H Objective-Cardiology Exam Last Set of Vital Signs Vital Signs 10/18/21 10/18/21 10/18/21 10/18/21 04:15 06:00 06:29 08:00 Temp 36.3 Pulse 106 Resp 17 B/P (MAP) 155/113 Pulse Ox 92 O2 Delivery Vapotherm O2 Flow Rate 25.00 40.00 FiO2 40 I&O Intake and Output 10/18/21 00:00 Intake Total 1725 ml Output Total 750 ml Balance 975 ml Intake Oral 1250 ml IV Total 475 ml Output Urine Total 750 ml # Voids 1 General: Alert, Oriented X3, Cooperative HEENT: Atraumatic, PERRLA Neck: Supple, No JVD, No Thyromegaly Lungs: Normal Air Movement, Other (Bilateral rhonchi) Heart: Normal S1, Normal S2, Other (Atrial fibrillation, systolic murmur at the left sternal border) Abdomen: Normal Bowel Sounds, Soft, No Tenderness, No Hepatosplenomegaly, No Masses Extremities: No Clubbing, No Cyanosis, No Edema, Normal Pulses, No Tenderness/Swelling Skin: No Rashes, No Breakdown, No Significant Lesion Neuro: Normal Speech, Normal Tone, Sensation Intact, Other (Right side weakness) Psych/Mental Status: Mood NL, Other (Confused) Results Lab Laboratory Tests 10/18/21 05:19 A/P-Cardiology Admission Diagnosis Non-ST elevation myocardial infarction, type II myocardial infarction Atrial fibrillation with rapid ventricular response Subacute CVA Acute respiratory failure Assessment/Plan Non-ST elevation myocardial infarction, elevated troponin, emergency cardiac catheterization was carried out showing calcified coronary artery with mild to moderate disease nonobstructive disease. Probably type II myocardial infarction secondary to atrial fibrillation and tachycardia. Atrial fibrillation with rapid ventricular response, had history of paroxysmal atrial fibrillation, tolerating Eliquis and Cardizem. Continue to monitor 2D echo was done on 10/18/2021 showing normal left ventricular size and systolic function ejection fraction 60%, biatrial enlargement, severe pulmonary hypertension, heavily calcified mitral valve with mild mitral stenosis, mild ao rtic stenosis. Change in mental status, probably secondary to hypoxemia and respiratory failure. Questionable underlying CVA. Maintained on Lovenox, NIH was 5, did not qualify for TPA. Acute respiratory failure, shortness of breath, improving, still on Vapotherm, managed by medical team Sepsis, receiving antibiotics, managed by medical team Subacute CVA. Patient has right-sided weakness. Probably was the cause of her weakness and fall over 24 hours ago. Hypertension, monitor blood pressure RIK MILLADR MD Oct 18, 2021 10:08
--- NOTE | 2021-10-18 10:44 | Tele-ICU Progress Note ---
Subjective Date Seen by a Provider: Oct 18, 2021 Time Seen by a Provider: 10:44 Sepsis Event Evaluation Height, Weight, BMI Height: 5'0.50" Weight: 176lbs. 0.0oz. 79.157565sy; 24.82 BMI Method: Focused Exam Lactate Level 10/15/21 16:36: Lactic Acid Level 5.28*H 10/15/21 19:54: Lactic Acid Level 2.44*H 10/15/21 22:03: Lactic Acid Level 2.22*H Exam Exam Patient acknowledged, consented, and participated in this virtual visit which was conducted using real time audio/video Vital Signs Date Time Temp Pulse Resp B/P (MAP) Pulse Ox O2 Delivery O2 Flow Rate FiO2 10/18/21 10:00 88 18 139/96 92 Vapotherm 25.00 40.00 10/18/21 09:00 96 31 137/91 94 Vapotherm 25.00 40.00 10/18/21 08:00 106 155/113 92 Vapotherm 25.00 40.00 10/18/21 07:36 79 10/18/21 07:00 88 159/136 91 Vapotherm 25.00 40.00 10/18/21 06:29 94 Vapotherm 20.00 40 10/18/21 06:02 Vapotherm 25.00 40.00 10/18/21 06:00 86 17 153/101 95 Vapotherm 25.00 50.00 10/18/21 05:57 77 30 147/108 97 Vapotherm 25.00 50.00 10/18/21 04:15 36.3 Vapotherm 25.00 50.00 10/18/21 04:00 77 26 131/84 94 Vapotherm 25.00 50.00 10/18/21 04:00 92 Vapotherm 25.00 50 10/18/21 03:15 Vapotherm 25.00 50.00 10/18/21 03:00 76 38 124/81 96 Vapotherm 30.00 60.00 10/18/21 02:43 94 Vapotherm 25.00 45 10/18/21 02:00 73 25 107/64 94 Vapotherm 30.00 60.00 10/18/21 01:38 Vapotherm 30.00 60.00 10/18/21 01:05 85 21 126/103 90 Vapotherm 25.00 45.00 10/18/21 01:00 97 10/18/21 00:00 87 36 137/98 92 Vapotherm 25.00 45.00 10/17/21 23:00 75 23 122/79 95 Vapotherm 25.00 45.00 10/17/21 23:00 94 Vapotherm 25.00 45 10/17/21 23:00 36.3 33 94 Vapotherm 25.00 45.00 10/17/21 22:21 95 Vapotherm 25.00 45 10/17/21 22:00 86 142/85 94 Vapotherm 25.00 45.00 10/17/21 21:00 89 46 129/85 92 Vapotherm 25.00 45.00 10/17/21 20:00 98 144/86 94 Vapotherm 25.00 45.00 10/17/21 20:00 95 Vapotherm 25.00 45 10/17/21 19:51 36.7 10/17/21 19:00 36.8 88 32 138/60 95 Vapotherm 25.00 45.00 10/17/21 19:00 92 10/17/21 18:39 92 Vapotherm 25.00 45 10/17/21 18:00 89 33 129/93 96 Vapotherm 20.00 40.00 10/17/21 17:00 96 23 114/67 96 Vapotherm 20.00 40.00 10/17/21 16:00 89 23 152/70 91 Vapotherm 20.00 40.00 10/17/21 16:00 95 Vapotherm 20.00 50 10/17/21 16:00 36.4 10/17/21 15:00 93 39 164/88 93 Vapotherm 20.00 40.00 10/17/21 14:25 90 Vapotherm 25.00 45 10/17/21 14:00 86 13 126/82 90 Vapotherm 20.00 40.00 10/17/21 13:00 88 14 131/74 88 Vapotherm 20.00 40.00 10/17/21 12:34 77 10/17/21 12:02 95 Vapotherm 20.00 50 10/17/21 12:00 81 30 91/47 90 Vapotherm 20.00 40.00 10/17/21 11:20 36.3 10/17/21 11:00 110 21 122/63 91 Vapotherm 20.00 40.00 I & O 10/18/21 07:00 Intake Total 1550 ml Output Total 550 ml Balance 1000 ml Height & Weight Height: 5'0.50" Weight: 176lbs. 0.0oz. [id number]; 24.82 BMI Method: General Appearance: WD/WN, Anxious, Mild Distress (uncomfortable) HEENT: PERRL/EOMI, Pharynx Normal Neck: Normal Inspection, Supple Respiratory: Decreased Breath Sounds, Respiratory Distress (tachypnea) Cardiovascular: Systolic Murmur, Irregularly Irregular, Tachycardia Capillary Refill: Less Than 3 Seconds Gastrointestinal: normal bowel sounds, non tender, soft; No distended, No guarding, No rebound Extremity: Normal Inspection, Pedal Edema, Other (lower extremities tender to palpation) Neurologic/Psychiatric: Alert, Motor Weakness (right > left upper extremity), Other (uncomfortable, cooperative) Skin: Normal Color, Warm/Dry Lymphatic: No Adenopathy Results Lab Laboratory Tests 10/17/21 04:23 10/18/21 05:19 Assessment/Plan Assessment/Plan (Tele-ICU Physician , Progress Note ) Available chart/ vitals / labs / Images reviewed Video assessment done using teleICU camera, rest of exam as per RN Discussed with RN , EXAM PER RN Events overnight : Afebrile FiO2 - VT 20L 40 % I/O = POS Drips: Pressors: , hemodynamically stable Consultants: cards Hospital course: (10/15) 81/F- CVA, Nstemi--Afib-rvr, CCLab, calcifications and non obstructive disease. On home O2// vapotherm and cardizem gtt. 10/16 - VT 25L 50% 10/18- 25L 40 % A/P Sepsis , supected - sourse ? PNA ( blood cx 10/15 negative ) - Vanco / zosyn 10/16 Acute on chronic resp failure - NO PE on CTA 10/16/21 -FiO2 - VT 20L 40 % - can not do IS - will repeat cxr today ( Chronic respiratory failure with hypoxia on 2-3 L Non-ST elevation myocardial infarction, type II TN - as per cards A fib RBR - cardizem gtt OFF , po meds - AC with eliquis as per cards AMS - CTH - no acute abnorm 10/16 - suspected Subacute CVA. Patient has right-sided weakness. AAO now - as per cards Mild hematuria - catheter removed 10/17 - follow on eliquis Anxiety - precedex not started - will try xanax prn - Lines : peripg (Central Line Necessity Reviewed) Espinoza: removed 10/17 OG: Nutrition: Analgesia: Anxiety/ delirium VTE Prophylaxis: eliquis Stress Ulcer Prophylaxis: Plans in collaboration with bedside consultants and IM MDs. Discussed with RN to reach out if any questions or concerns A total of 33 minutes of critical care time was devoted to this patient today, required to treat and/or prevent further deterioration of critical care condition ( as above) . IRAM PADGETT MD Oct 18, 2021 10:44
--- NOTE | 2021-10-18 11:31 | ST Dysphagia Evaluation ---
Speech Evaluation-General Medical Diagnosis Respiratory Failure Onset Date: Oct 15, 2021 Therapy Diagnosis Therapy Diagnosis: Mild Oral Dysphagia Precautions Precautions: Fall, Aspiration Precautions/Isolations: Standard Precautions Referral Referring Physician: Dr. Ball Reason for Referral: Evaluation/Treatment Medical History Pertinent Medical History: Diverticulitis, GERD, HTN, Hypothroidism Current History The patient is an 81 year old female with a past medical history of HTN, CAD, hypothyroidism, atrial fibrillation, chronic respiratory failure (2-3 L of oxygen at home), who was found down on her bathroom floor. The patient was down for an unknown amount of time. Per family, the patient lives independently and leads a relatively "normal" life. She was found to have right sided weakness on arrival and underwent a CT head which revealed no acute abnormalities. CXR: 10/15/21: 1. Enlargement of the cardiac silhouette with abnormal pulmonary vascularity suggesting edema. 2. The size of the cardiac silhouette appears increased from the prior examination with a prominent left superior heart border and right heart border. These findings could be further assessed with CT. Reviewed History: Yes Speech PLF/Current-Dysphagia Prior Level of Function The patient reports she consumes a regular diet with thin liquids prior to hospitalization. The patient denied s/s of suspected aspiration on her current PO consistency. Subjective The patient was lying in bed, awake and alert upon entrance to the patient's room. The patient greeted the clinician appropriately and was agreeable to participation in the clinical bedside swallowing evaluation. The patient denied s/s of suspected aspiration with her current diet consistency of dysphagia two with thin liquids. The patient reports she has her dentures in place during intake at home, therefore, the clinician placed the dentures in place for the patient. Cognitive Status Patient Orientation: Person, Place Oral Motor Skills Dentition: Edentalous Denture Type: Full- Upper & Lower (Placed by clinician.) Current Food Consistancy: Mechanical Soft, Thin Liquids Ability to Follow Directions: Good Oral Expression Ability: Mild Impairment Voice Voice Phonatory-Based Quality: Normal Voice Pitch: Normal Voice Loudness: Normal Face Facial Symmetry: Symmetrical Oral-Facial Assessment Oral-Facial Dentition: Normal Labial Seal Description: Weak Smile: Normal Lingual Protrusion: Normal Lingual ROM: Normal Lingual Strength: Abnormal (Mildly weak.) Pharynx Velopharyngeal Move.: Normal Volitional Dry Swallow: Yes Voluntary Cough: Yes Can Clear Throat Volitionally: Yes Productive Cough: Yes Productive Throat Clear: Yes Dysphagia Evaluation Consistencies Presented: Thin Liquid, Mechanical Soft, Pureed The patient was able to remove the bolus appropriately from the spoon and straw. Mildly prolonged mastication with the soft solid consistency, however, complete bolus formation and posterior transfer were displayed. Anterior spillage of bolus material was not present throughout the evaluation. Laryngeal elevation was present to palpation. Overt s/s of suspected aspiration were not demonstrated throughout the pharyngeal swallow with any consistency tested. Dietary Recommendations: Mechanical Soft Liquid Recommendations: Thin Swallowing Precautions: Alternate Liquids/Solids, Small Bites and Sips, Sitting 90 Degrees 30 Post Intake Dysphagia Evaluation Summary The patient demonstrated mild oral dysphagia characterized by slightly disorganized mastication of solid consistencies (reduced lingual and oral coordination). Overt s/s of suspected aspiration were not demonstrated with any consistency tested on this date. The patient's vocal quality remained clear following each swallow. Speech-Plan Treatment Plan Speech Therapy Treatment Plan: Discontinue ST Frequency: 1 time per week Estimated Hrs Per Day: .25 hour per day Rehab Potential: Fair Safety Risks/Education Teaching Recipient: Patient Teaching Methods: Discussion Response to Teaching: Verbalize Understanding, Reinforcement Needed Education Topics Provided: Results of Clinical Bedside Swallowing Evaluation, Safe Swallowing Precautions Time Speech Therapy Time In: 08:50 Speech Therapy Time Out: 09:10 Total Billed Time: 20 Billed Treatment Time HELEN Adams DYST No LOY, ELIZABETH ST Oct 18, 2021 11:31
--- NOTE | 2021-10-18 12:09 | Physical Therapy Evaluation ---
PT Evaluation-General Medical Diagnosis Admission Date 10/15/2021 Medical Diagnosis: Respiratory Failure Onset Date: Oct 15, 2021 Therapy Diagnosis Therapy Diagnosis: weakness, debility Height/Weight Height (Feet): 5 Height (Inches): 0.50 Weight (Pounds): 176 Weight (Ounces): 0.0 Precautions Precautions/Isolations: Standard Precautions Referral Physician: Lizzy Reason for Referral: Evaluation/Treatment Medical History Pertinent Medical History: Atrial Fib, Diverticulitis, GERD, HTN, Hypothroidism Current History Patient presented to ED via EMS after being found during a wellness check on the bathroom floor. Patient has new onset of confusion and weakness Reviewed History: Yes Social History Home: Single Level Current Living Status: Alone Prior Prior Level of Function SCALE: Activities may be completed with or without assistive devices. 4-Xllbgkstbs-foiuzdz completes the activity by him/herself with no assistance from a helper. 5-Set-up or Clean-up Assistance-helper sets up or cleans up; patient completes activity. Sandwich assists only prior to or following the activity. 4-Supervision or Touching Assistance-helper provides verbal cues and/or touching/steadying and/or contact guard assistance as patient completes activity. Assistance may be provided throughout the activity or intermittently. 3-Partial/Moderate Assistance-helper does LESS THAN HALF the effort. Sandwich lifts, holds or supports trunk or limbs, but provides less than half the effort. 2-Substantial/Maximal Assistance-helper does MORE THAN HALF the effort. Sandwich lifts or holds trunk or limbs and provides more than half the effort. 7-Gttinckns-rfpzwo does ALL the effort. Patient does none of the effort to complete the activity. Or, the assistance of 2 or more helpers is required for the patient to complete the activity. If activity was not attempted, code reason: 7-Patient Refused. 9-Not Applicable-not attempted and the patient did not perform the activity before the current illness, exacerbation or injury. 10-Not Attempted due to Environmental Limitations-(lack of equipment, weather restraints, etc.). 88-Not Attempted due to Medical Conditions or Safety Concerns. Bed Mobility: 6 Transfers (B,C,W/C): 6 Gait: 6 Indoor Mobility (Ambulation): Independent PT Evaluation-Current Subjective Patient presents laying in bed and agrees to participate in physical therapy. Objective Patient Orientation: Person ROM/Strength ROM Lower Extremities WFL Strength Upper Extremities Patient has 1/5 strength on R UE Strength Lower Extremities 3-/5 bilaterally grossly Integumentary/Posture Bladder Incontinence: Espinoza Cath Sensory Vision: Functional Hearing: Hearing Aid/Aides Transfers Sit to Lying (QC): 1 Lying to Sitting/Side of Bed(Q: 1 Sit to Stand (QC): 1 Patient was dependent for all bed mobility and transfers. Gait Does the Patient Walk?: No and Walking Goal IS indicated Mode of Locomotion: Walk Anticipated Mode of Locomotion: Walk Balance Sitting Static: Poor Sitting Dynamic: Poor Standing Static: Poor Standing Dynamic: Poor Assessment/Needs Patient was dependent for all bed mobility and transfers. Patient attempted to stand at the side of her bed twice but was dependent for sit to stand. Patient was unable to sit EOB unassisted. Patient requires skilled therapy to increase strength, balance, and functional activities. Rehab Potential: Poor PT Plating Engineer Goals Intermediate Goals PT Intermediate Goals Time Frame: Oct 30, 2021 Roll Left & Right (QC): 3 Sit to Lying (QC): 3 Lying-Sitting on Side/Bed(QC): 3 Sit to Stand (QC): 3 Chair/Ljt-ui-Dgcrk Xfer(QC): 3 Toilet Transfer (QC): 3 Does the Patient Walk: Yes Walk 10 feet (QC): 3 Walk 50ft with 2 Turns (QC): 3 PT Plan Problem List Problem List: Activity Tolerance, Functional Strength, Safety, Balance, Gait, Transfer, Bed Mobility, ROM Treatment/Plan Treatment Plan: Continue Plan of Care Treatment Plan: Bed Mobility, Education, Functional Activity Baljeet, Functional Strength, Gait, Safety, Therapeutic Exercise, Transfers Treatment Duration: Oct 30, 2021 Frequency: 6 times per week Estimated Hrs Per Day: .25 hour per day Time/GCodes Time In: 1027 Time Out: 1040 Total Billed Treatment Time: 13 Total Billed Treatment 1 Visit EVMod 13 min BUTCH WILLS PT Oct 18, 2021 12:08
--- NOTE | 2021-10-18 12:48 | Diagnostic Imaging Report ---
INDICATION: Hypoxia. TECHNIQUE/COMPARISON: A frontal chest was obtained at 10:18 AM and compared to 10/15/2021. FINDINGS: There is prominent cardiomegaly. There is central vascular congestion with interstitial edema. There is some patchy infiltrate in the right perihilar region and left base. There is no pneumothorax or gross pleural fluid. IMPRESSION: Cardiomegaly. Central vascular congestion with perihilar interstitial edema and right perihilar and left basilar infiltrates. The findings appear worsened compared to the previous study. Dictated by: Dictated on workstation # [id number]
--- NOTE | 2021-10-18 12:52 | Diagnostic Imaging Report ---
PROCEDURE: MR imaging of the brain without contrast. TECHNIQUE: Multiplanar, multisequence MR imaging of the brain was performed without contrast. INDICATION: Stroke. COMPARISON: CT head without contrast 10/15/2021. FINDINGS: Examination is limited by motion. Moderate generalized parenchymal volume loss. Advanced T2 hyperintensities in the supratentorial white matter are nonspecific. Multiple foci of restricted water diffusion signal in both cerebral hemispheres, the right basal ganglia and right cerebellum. The largest of these is in the deep white matter of the left frontal lobe posteriorly measures up to 1.2 cm. The largest on the right is in the right caudate head and measures up to 0.6 cm. No hemosiderin deposition or evidence of intracranial hemorrhage is identified given the limitations. Normal morphology of the major midline structures, sella, posterior fossa and cerebellar pontine angle. Normal intracranial flow voids. No hydrocephalus or extra-axial fluid collections. Postoperative changes in the right globe. Paranasal sinuses and mastoids appear clear. Normal bone marrow signal. IMPRESSION: Numerous small acute to subacute infarcts in both cerebral hemispheres, the right basal ganglia and the right cerebellum. Findings are suspicious for an embolic process. No evidence of hemorrhagic conversion. No significant mass effect. Dictated by: Dictated on workstation # [id number]
[2021-10-18] MEDS ORDERED: FUROSEMIDE 40 MG/4 ML INJ (LASIX) IVP NR (13:15)
[2021-10-18] MEDS: NS IV 500 ML 500 ML IV SCH (13:55)
--- NOTE | 2021-10-18 16:58 | Diagnostic Imaging Report ---
PROCEDURE: US carotid duplex, bilateral. TECHNIQUE: Multiple real-time grayscale images were obtained over the carotid arteries in various projections, bilaterally. Additional spectral analysis and color Doppler duplex images were also obtained. INDICATION: STROKE. COMPARISON: None available. FINDINGS: Right carotid circulation: There is mild plaque formation in the right carotid bifurcation. Based on grayscale images and flow velocity criteria, there is mild stenoses (<50%) of the right internal carotid artery. Left carotid circulation: There is mild plaque formation in the left carotid bifurcation. Based on grayscale images and flow velocity criteria, there is mild stenoses (<50%) of the left internal carotid artery. Flow in the bilateral vertebral arteries is antegrade. IMPRESSION: 1. Mild (<50%) stenosis of the right internal carotid artery. 2. Mild (<50%) stenosis of the left internal carotid artery. Society of Radiologist in Ultrasound Consensus: Normal: ICA PSV is <125 cm/sec and no plaque or intimal thickening is visible sonographically ICA/CCA PSV ratio <2.0 ICA EDV <40 cm/sec Mild (<50% ICA stenosis): ICA PSV is <125 cm/sec and plaque or intimal thickening is visible sonographically ICA/CCA PSV ratio <2.0 ICA EDV <40 cm/sec Moderate (50-69% ICA stenosis) ICA PSV is 125-230 cm/sec and plaque is visible sonographically ICA/CCA PSV ratio of 2.0-4.0 ICA EDV of 40-100 cm/sec Severe (?70% ICA stenosis but less than near occlusion): ICA PSV is >230 cm/sec and visible plaque and luminal narrowing are seen at pichardo-scale and color Doppler ultrasound (the higher the Doppler parameters lie above the threshold of 230 cm/sec, the greater the likelihood of severe disease) ICA/CCA PSV ratio >4 ICA EDV >100 cm/sec Near occlusion of the ICA Velocity parameters may not apply, since velocities may be high, low, or undetectable Markedly narrowed lumen at color or power Doppler ultrasound Total occlusion of the ICA: No detectable patent lumen at pichardo-scale ultrasound and no flow with spectral, power, and color Doppler ultrasound May be compensatory increased velocity in the contralateral carotid Parameters based on the consensus panel Pichardo-Scale and Doppler ultrasound criteria published June 2003, Radiology, Volume 229. DOPPLER (peak systolic velocity M/S Right Left CCA .45 .46 ICA Proximal .50 .50 ICA Mid .52 .58 ICA Distal .43 .48 RATIO 1.1 1.3 ECA .65 .59 VERT .43 .36 Dictated by: Dictated on workstation # [id number]
[2021-10-18] MEDS ORDERED: TROUGH ORDER-PHARMACY XX NR (18:00)
--- NOTE | 2021-10-18 18:10 | Progress Note - Hospitalist ---
Subjective HPI/CC On Admission Date Seen by Provider: Oct 18, 2021 Time Seen by Provider: 09:35 Radha Ramsey is an 81 year old female with PMH HTN, CAD, hypothyroidism, atrial fibrillation, chronic respiratory failure with hypoxia on 2-3 L, who was found down on her bathroom floor. She was down for an unknown amount of time. She is unable to provide any history. She has family at the bedside. She reportedly lives independently and leads a relatively "normal" life. She was found to have right sided weakness on arrival and underwent CT head which showed no acute abnormalities. She was also found to have a significantly elevated troponin and was taken for urgent heart cath. She was found to have no significant coronary artery disease and no intervention was required. She was transferred to the ICU. Her care has been transferred to the hospitalist service. Subjective/Events-last exam She has no complaints. She just finished her breakfast. She asks for her tray to be moved and her cell phone moved closer. She denies pain. She denies trouble breathing. She is still having right sided weakness. Focused Exam Lactate Level 10/15/21 19:54: Lactic Acid Level 2.44*H 10/15/21 22:03: Lactic Acid Level 2.22*H Objective Exam Vital Signs Vital Signs Date Time Temp Pulse Resp B/P (MAP) Pulse Ox O2 Delivery O2 Flow Rate FiO2 10/18/21 16:00 79 25 99/67 96 Vapotherm 25.00 40.00 10/18/21 16:00 40 10/18/21 15:43 36.3 Capillary Refill : Less Than 3 Seconds General Appearance: No Apparent Distress, WD/WN Respiratory: Lungs Clear, No Respiratory Distress Cardiovascular: Regular Rate, Rhythm, No Murmur Gastrointestinal: Normal Bowel Sounds, Soft Extremity: Normal Inspection, Non Tender Neurologic/Psychiatric: Alert, Motor Weakness (right upper extremity) Skin: Normal Color, Warm/Dry Results/Procedures Lab Laboratory Tests 10/18/21 05:19 Patient resulted labs reviewed. Imaging: Reviewed Imaging Report Assessment/Plan Assessment and Plan Assess & Plan/Chief Complaint Acute ischemic stroke of multiple vascular territories MRI with multifocal strokes Echo with no evidence of vegetation or thrombus, normal EF Carotid ultrasound with mild carotid stenosis bilaterally Continue aspirin Add Lipitor PT/OT AFib with RVR Continue Cardizem and Eliquis Cardiology following Acute on chronic respiratory failure with hypoxia Pneumonia Requiring Vapotherm CT chest/abdomen/pelvis with bilateral pleural effusions, suggestive of increased right heart pressures Blood cultures with no growth Procal elevated Continue Zosyn Lasix given NSTEMI Troponin elevated Left heart cath without significant CAD Cardiology following HTN CAD Hypothyroidism Continue home meds Lactic acidosis, resolved Septic shock, resolved Rhabdomyolysis, resolved Elevated LFTs, improving Diagnosis/Problems Diagnosis/Problems (1) Acute ischemic multifocal multiple vascular territories stroke Status: Acute (2) Septic shock Status: Resolved Resolution Date/Time: 10/18/21 @ 18:04 (3) Acute on chronic respiratory failure with hypoxia Status: Acute (4) PNA (pneumonia) Status: Acute (5) Metabolic encephalopathy Status: Resolved Resolution Date/Time: 10/18/21 @ 18:04 (6) Right sided weakness Status: Acute (7) Elevated LFTs Status: Resolved Resolution Date/Time: 10/18/21 @ 18:10 (8) Rhabdomyolysis Status: Resolved Resolution Date/Time: 10/18/21 @ 18:10 (9) HTN (hypertension) Status: Chronic (10) CAD (coronary artery disease) Status: Chronic (11) Hypothyroidism Status: Chronic (12) Atrial fibrillation with RVR Status: Acute (13) Lactic acidosis Status: Resolved Resolution Date/Time: 05/28/20 @ 14:32 (14) NSTEMI (non-ST elevated myocardial infarction) Status: Acute Clinical Quality Measures Stroke: Symptoms onset unknown: MARINA Cuadra MD Oct 18, 2021 18:10
[2021-10-19] MEDS: PIPERACILLIN SODIUM/TAZOBACTAM 4.5 GM in NS (IVPB) 100 ML IV SCH ×3 (00:25→17:37)
[2021-10-19 05:22] LABS: POTASSIUM 3.7 MMOL/L (3.6-5.0)
[2021-10-19 05:28] LABS: CREATININE SERUM 0.84 MG/DL (0.60-1.30)
[2021-10-19] MEDS: NS IV 500 ML 500 ML IV SCH (06:06)
--- NOTE | 2021-10-19 08:46 | Cardiology Progress Note ---
Subjective Date Seen by Provider: Oct 19, 2021 Time Seen by Provider: 08:44 Subjective/Events-last exam Patient is sitting comfortably in a chair, no new complaint. No chest pain. Having generalized weakness. Review of Systems General: No Chills, No Night Sweats; Fatigue, Malaise; No Appetite, No Other HEENT: No Head Aches, No Visual Changes, No Eye Pain, No Ear Pain, No Dysphasia, No Sinus Congestion, No Post Nasal Drip, No Sore Throat, No Other Pulmonary: Dyspnea; No Cough, No Pleuritic Chest Pain, No Other Cardiovascular: No: Chest Pain, Palpitations, Orthopnea, Paroxysmal Noc. Dyspnea, Edema, Lt Headedness, Other Objective-Cardiology Exam Last Set of Vital Signs Vital Signs 10/18/21 10/19/21 10/19/21 10/19/21 16:00 04:00 07:32 07:45 Temp 36.0 Pulse 75 Resp 22 B/P (MAP) 137/83 Pulse Ox 95 O2 Delivery High Flow N/C O2 Flow Rate 8.00 FiO2 40 I&O Intake and Output 10/19/21 00:00 Intake Total 2400 ml Output Total 2525 ml Balance -125 ml Intake Oral 1100 ml IV Total 1300 ml Output Urine Total 2525 ml # Voids 1 # Urine Diapers 3 General: Alert, Oriented X3, Cooperative HEENT: Atraumatic, PERRLA Neck: Supple, No JVD, No Thyromegaly Lungs: Clear to Auscultation, Normal Air Movement Heart: Normal S1, Normal S2, Other (Atrial fibrillation, systolic murmur at the left sternal border) Abdomen: Normal Bowel Sounds, Soft, No Tenderness, No Hepatosplenomegaly, No Masses Extremities: No Clubbing, No Cyanosis, No Edema, Normal Pulses, No Tenderness/Swelling Skin: No Rashes, No Breakdown, No Significant Lesion Neuro: Normal Speech, Normal Tone, Sensation Intact, Other (Right side weakness) Psych/Mental Status: Mood NL, Other (Confused) Results Lab Laboratory Tests 10/19/21 04:54 A/P-Cardiology Admission Diagnosis Non-ST elevation myocardial infarction, type II myocardial infarction Atrial fibrillation with rapid ventricular response Subacute CVA Acute respiratory failure Assessment/Plan Non-ST elevation myocardial infarction, elevated troponin, emergency cardiac catheterization was carried out showing calcified coronary artery with mild to moderate disease nonobstructive disease. Probably type II myocardial infarction secondary to atrial fibrillation and tachycardia. Paroxysmal atrial fibrillation, currently rate is better controlled, tolerating Cardizem and Eliquis. Continue all current medications and monitor Generalized weakness, change in mental status, NIH score of 5. Did not qualify for TPA. Subacute CVA receiving physical therapy 2D echo was done on 10/18/2021 showing normal left ventricular size and systolic function ejection fraction 60%, biatrial enlargement, severe pulmonary h ypertension, heavily calcified mitral valve with mild mitral stenosis, mild aortic stenosis. Status post acute respiratory failure, better at this time. Continue to monitor Sepsis, receiving antibiotics, managed by medical team Hypertension, monitor blood pressure RIK MILLARD MD Oct 19, 2021 08:46
[2021-10-19] MEDS: APIXABAN 5 MG (ELIQUIS) TABLET PO SCH ×2 (09:17→19:53)
[2021-10-19] MEDS: lisINopril 40 MG (PRINIVIL) TABLET PO SCH (09:17)
[2021-10-19] MEDS: DIGOXIN 0.125 MG (LANOXIN) TAB PO SCH (09:17)
[2021-10-19] MEDS: OXYBUTYNIN (DITROPAN) 5 MG TAB PO SCH ×2 (09:17→19:53)
[2021-10-19] MEDS: ASPIRIN E.C. 81 MG (ECOTRIN) TAB PO SCH (09:17)
[2021-10-19] MEDS: ALPRAZolam 0.25 MG (XANAX) TAB PO PRN ×2 (09:18→19:53)
[2021-10-19] MEDS: LEVOTHYROXINE 75 MCG (LEVOTHROID) TABLET PO SCH (09:18)
--- NOTE | 2021-10-19 09:42 | Physical Therapy Daily Note ---
PT Daily Note-Current Subjective Patient presented in bed and agreed to move to the chair with therapy. Mental Status Patient Orientation: Person Attachments: Oxygen (8L NC), Espinoza Catheter, IV Transfers SCALE: Activities may be completed with or without assistive devices. 2-Msvyatlncb-pftsgit completes the activity by him/herself with no assistance from a helper. 5-Set-up or Clean-up Assistance-helper sets up or cleans up; patient completes activity. [place] assists only prior to or following the activity. 4-Supervision or Touching Assistance-helper provides verbal cues and/or touching/steadying and/or contact guard assistance as patient completes activity. Assistance may be provided throughout the activity or intermittently. 3-Partial/Moderate Assistance-helper does LESS THAN HALF the effort. [place] lifts, holds or supports trunk or limbs, but provides less than half the effort. 2-Substantial/Maximal Assistance-helper does MORE THAN HALF the effort. [place] lifts or holds trunk or limbs and provides more than half the effort. 8-Rilxcilgb-ymtnpl does ALL the effort. Patient does none of the effort to complete the activity. Or, the assistance of 2 or more helpers is required for the patient to complete the activity. If activity was not attempted, code reason: 7-Patient Refused. 9-Not Applicable-not attempted and the patient did not perform the activity before the current illness, exacerbation or injury. 10-Not Attempted due to Environmental Limitations-(lack of equipment, weather restraints, etc.). 88-Not Attempted due to Medical Conditions or Safety Concerns. Lying to Sitting/Side of Bed(Q: 1 Sit to Stand (QC): 1 Chair/Feg-ow-Szgci Xfer(QC): 1 Patient is dependent for all transfers and bed mobility. Gait Training Does the Patient Walk?: No and Walking Goal IS indicated Exercises Supine Ex: Heel Slides, Hip abd/add Assessment Patient performed bed mobility and transferred to the chair during therapy session. Patient was dependent for bed mobility with stand pivot transfer. Patient was able to sit EOB for about 20 seconds at a time without assistance. Patient was left post tx sitting in her chair with nurse call and all needs met. Patient was able to perform supine exercises independently. PT Prison Goals Smoked Meat Preparer Goals PT Smoked Meat Preparer Goals Time Frame: Oct 30, 2021 Roll Left & Right (QC): 3 Sit to Lying (QC): 3 Lying-Sitting on Side/Bed(QC): 3 Sit to Stand (QC): 3 Chair/Sgt-qd-Kgklg Xfer(QC): 3 Toilet Transfer (QC): 3 Does the Patient Walk: Yes Walk 10 feet (QC): 3 Walk 50ft with 2 Turns (QC): 3 PT Plan Problem List Problem List: Activity Tolerance, Functional Strength, Safety, Balance, Gait, Transfer, Bed Mobility, ROM Treatment/Plan Treatment Plan: Continue Plan of Care Treatment Plan: Bed Mobility, Education, Functional Activity Baljeet, Functional Strength, Gait, Safety, Therapeutic Exercise, Transfers Treatment Duration: Oct 30, 2021 Frequency: 6 times per week Estimated Hrs Per Day: .25 hour per day Time/GCodes Time In: 735 Time Out: 748 Total Billed Treatment Time: 13 Total Billed Treatment 1 Visit FA 13 min BUTCH WILLS PT Oct 19, 2021 09:42
[2021-10-19 09:44] VITALS: BP 152/94
--- NOTE | 2021-10-19 10:36 | Tele-ICU Progress Note ---
Progress Note PATENT IS TELEMETRY STATUS Video assessment done , Hemodynamically stable Available charting reviewed SIGN OFF " ICU CONSULT " CONTINUE TO MONITOR PER USUAL TELE-ICU PROTOCOL No need for Tele-ICU interventions Plans as delineated by bedside physicians / consultants Focused Exam Height, Weight, BMI Height: 5'0.50" Weight: 176lbs. 0.0oz. [id number]; 24.82 BMI Method: IRAM PADGETT MD Oct 19, 2021 10:36
[2021-10-19] MEDS ORDERED: RT-ALBUTEROL SULF 2.5 MG/3 ML PRE-MIX VIAL ONE (11:17)
[2021-10-19] MEDS ORDERED: RT-ALBUTEROL SULF 2.5 MG/3 ML PRE-MIX VIAL INH PRN (11:30)
[2021-10-19] MEDS: FUROSEMIDE 40 MG/4 ML INJ (LASIX) IVP SCH (12:49)
--- NOTE | 2021-10-19 19:00 | Progress Note - Hospitalist ---
Subjective HPI/CC On Admission Date Seen by Provider: Oct 19, 2021 Time Seen by Provider: 08:20 Radha Ramsey is an 81 year old female with PMH HTN, CAD, hypothyroidism, atrial fibrillation, chronic respiratory failure with hypoxia on 2-3 L, who was found down on her bathroom floor. She was down for an unknown amount of time. She is unable to provide any history. She has family at the bedside. She reportedly lives independently and leads a relatively "normal" life. She was found to have right sided weakness on arrival and underwent CT head which showed no acute abnormalities. She was also found to have a significantly elevated troponin and was taken for urgent heart cath. She was found to have no significant coronary artery disease and no intervention was required. She was transferred to the ICU. Her care has been transferred to the hospitalist service. Subjective/Events-last exam She is still having right sided weakness. She has her breakfast and is about to eat. She is not short of breath with her oxygen on. Objective Exam Vital Signs Vital Signs Date Time Temp Pulse Resp B/P (MAP) Pulse Ox O2 Delivery O2 Flow Rate FiO2 10/19/21 16:04 36.8 10/19/21 12:54 81 10/19/21 12:01 28 135/87 95 High Flow N/C 8.00 10/18/21 16:00 40 Capillary Refill : Less Than 3 Seconds General Appearance: No Apparent Distress, Chronically ill Respiratory: No Respiratory Distress, Decreased Breath Sounds Cardiovascular: Systolic Murmur, Irregularly Irregular Gastrointestinal: Normal Bowel Sounds, Soft Extremity: Normal Inspection, Non Tender Neurologic/Psychiatric: Alert, Motor Weakness (right upper extremity) Skin: Normal Color, Warm/Dry Results/Procedures Lab Laboratory Tests 10/19/21 04:54 Patient resulted labs reviewed. Imaging: Reviewed Imaging Report Assessment/Plan Assessment and Plan Assess & Plan/Chief Complaint Acute ischemic stroke of multiple vascular territories MRI with multifocal strokes Continue aspirin and Lipitor PT/OT NSTEMI AFib HFpEF Pulmonary HTN Mild bilateral carotid stenosis Troponin elevated Left heart cath without significant CAD Continue Cardizem and Eliquis Cardiology following Acute on chronic respiratory failure with hypoxia Pneumonia Supplemental oxygen as needed, wean as able CT chest/abdomen/pelvis with bilateral pleural effusions, suggestive of increased right heart pressures Blood cultures with no growth Procal elevated Continue Zosyn HTN CAD Hypothyroidism Continue home meds Lactic acidosis, resolved Septic shock, resolved Rhabdomyolysis, resolved Elevated LFTs, improving AFib with RVR, resolved Diagnosis/Problems Diagnosis/Problems (1) Acute ischemic multifocal multiple vascular territories stroke Status: Acute (2) Septic shock Status: Resolved Resolution Date/Time: 10/18/21 @ 18:04 (3) Acute on chronic respiratory failure with hypoxia Status: Acute (4) PNA (pneumonia) Status: Acute (5) Metabolic encephalopathy Status: Resolved Resolution Date/Time: 10/18/21 @ 18:04 (6) Right sided weakness Status: Acute (7) Elevated LFTs Status: Resolved Resolution Date/Time: 10/18/21 @ 18:10 (8) Rhabdomyolysis Status: Resolved Resolution Date/Time: 10/18/21 @ 18:10 (9) HTN (hypertension) Status: Chronic (10) CAD (coronary artery disease) Status: Chronic (11) Hypothyroidism Status: Chronic (12) Atrial fibrillation with RVR Status: Acute (13) Lactic acidosis Status: Resolved Resolution Date/Time: 05/28/20 @ 14:32 (14) NSTEMI (non-ST elevated myocardial infarction) Status: Acute (15) Pulmonary hypertension Status: Acute (16) (HFpEF) heart failure with preserved ejection fraction Status: Acute Qualifiers: Heart failure chronicity: acute on chronic Qualified Codes: I50.33 - Acute on chronic diastolic (congestive) heart failure Clinical Quality Measures Stroke: Symptoms onset unknown: MARINA Cuadra MD Oct 19, 2021 19:00
[2021-10-19] MEDS: RT-ALBUTEROL SULF 2.5 MG/3 ML PRE-MIX VIAL INH SCH (19:23)
[2021-10-20] MEDS: NS IV 500 ML 500 ML IV SCH ×2 (01:07→14:01)
[2021-10-20 07:54] LABS: CALCIUM 9.3 MG/DL (8.5-10.1); CREATININE SERUM 0.83 MG/DL (0.60-1.30); POTASSIUM 3.8 MMOL/L (3.6-5.0)
[2021-10-20] MEDS: RT-ALBUTEROL SULF 2.5 MG/3 ML PRE-MIX VIAL INH SCH (08:15)
[2021-10-20] MEDS: APIXABAN 5 MG (ELIQUIS) TABLET PO SCH ×2 (10:01→21:09)
[2021-10-20] MEDS: ASPIRIN E.C. 81 MG (ECOTRIN) TAB PO SCH (10:01)
[2021-10-20] MEDS: DIGOXIN 0.125 MG (LANOXIN) TAB PO SCH (10:01)
[2021-10-20] MEDS: FUROSEMIDE 40 MG/4 ML INJ (LASIX) IVP SCH (10:01)
[2021-10-20] MEDS: OXYBUTYNIN (DITROPAN) 5 MG TAB PO SCH ×2 (10:02→21:09)
[2021-10-20] MEDS: LEVOTHYROXINE 75 MCG (LEVOTHROID) TABLET PO SCH (10:02)
[2021-10-20] MEDS: lisINopril 40 MG (PRINIVIL) TABLET PO SCH (10:02)
[2021-10-20] MEDS: RT-ALBUTEROL/IPRATROPIUM 3 ML (DUONEB) VIAL INH SCH ×4 (10:38→22:32)
[2021-10-20] MEDS: ALPRAZolam 0.25 MG (XANAX) TAB PO PRN ×2 (13:23→21:09)
[2021-10-20] MEDS ORDERED: FUROSEMIDE 40 MG/4 ML INJ (LASIX) IVP NR (13:45)
--- NOTE | 2021-10-20 14:11 | Cardiology Progress Note ---
Subjective Date Seen by Provider: Oct 20, 2021 Time Seen by Provider: 14:07 Subjective/Events-last exam Patient is laying down in bed, still having shortness of breath at rest. No chest pain, generalized fatigue and lethargy Review of Systems General: No Chills, No Night Sweats; Fatigue, Malaise; No Appetite, No Other HEENT: No Head Aches, No Visual Changes, No Eye Pain, No Ear Pain, No Dysphasia, No Sinus Congestion, No Post Nasal Drip, No Sore Throat, No Other Pulmonary: Dyspnea; No Cough, No Pleuritic Chest Pain, No Other Cardiovascular: No: Chest Pain, Palpitations, Orthopnea, Paroxysmal Noc. Dyspnea, Edema, Lt Headedness, Other Objective-Cardiology Exam Last Set of Vital Signs Vital Signs 10/18/21 10/20/21 10/20/21 16:00 12:14 12:44 Temp 36.8 Pulse 101 Resp 20 B/P (MAP) 108/70 Pulse Ox 99 O2 Delivery High Flow N/C O2 Flow Rate 8.00 FiO2 40 I&O Intake and Output 10/20/21 00:00 Intake Total 1920 ml Output Total 2600 ml Balance -680 ml Intake Oral 1320 ml IV Total 600 ml Output Urine Total 2600 ml # Urine Diapers 4 # Bowel Movements 2 General: Alert, Oriented X3, Cooperative HEENT: Atraumatic, PERRLA Neck: Supple, No JVD, No Thyromegaly Lungs: Clear to Auscultation, Normal Air Movement Heart: Normal S1, Normal S2, Other (Atrial fibrillation, systolic murmur at the left sternal border) Abdomen: Normal Bowel Sounds, Soft, No Tenderness, No Hepatosplenomegaly, No Masses Extremities: No Clubbing, No Cyanosis, No Edema, Normal Pulses, No Tenderness/Swelling Skin: No Rashes, No Breakdown, No Significant Lesion Neuro: Normal Speech, Normal Tone, Sensation Intact, Other (Right side weakness) Psych/Mental Status: Mood NL, Other (Confused) Results Lab Laboratory Tests 10/20/21 07:29 A/P-Cardiology Admission Diagnosis Non-ST elevation myocardial infarction, type II myocardial infarction Atrial fibrillation with rapid ventricular response Subacute CVA Acute respiratory failure Assessment/Plan Non-ST elevation myocardial infarction, elevated troponin, emergency cardiac catheterization was carried out showing calcified coronary artery with mild to moderate disease nonobstructive disease. Probably type II myocardial infarction secondary to atrial fibrillation and tachycardia. Paroxysmal atrial fibrillation, currently rate is better controlled, tolerating Cardizem and Eliquis. Continue all current medications and monitor Shortness of breath, acute on chronic respiratory insufficiency, status post res piratory failure, add additional dose of Lasix today, maintained on nasal cannula. Generalized weakness, change in mental status, NIH score of 5. Did not qualify for TPA. Subacute CVA, MRI suggestive multifocal strokes, receiving physical therapy 2D echo was done on 10/18/2021 showing normal left ventricular size and systolic function ejection fraction 60%, biatrial enlargement, severe pulmonary hypertension, heavily calcified mitral valve with mild mitral stenosis, mild aortic stenosis. Sepsis, receiving antibiotics, managed by medical team Hypertension, monitor blood pressure RIK MILLARD MD Oct 20, 2021 14:11
--- NOTE | 2021-10-20 14:48 | Physical Therapy Daily Note ---
PT Daily Note-Current Subjective Pt. up in recliner, call light on, states she feels she has wet herself and wants on BSC as she feels she could have a BM. Pt. c/o some discomfort at calves when touched Pain Numeric Pain Scale: 4 Location: Posterior Location Body Site: Calf Pain Description: Throbbing Appearance pt. dyspneic with resp at 43/min, at rest, O2 insitu Mental Status Patient Orientation: Confused Attachments: Oxygen, Other-See Comments (pure wick) Transfers SCALE: Activities may be completed with or without assistive devices. 7-Rqukylugaz-fgbmnyd completes the activity by him/herself with no assistance from a helper. 5-Set-up or Clean-up Assistance-helper sets up or cleans up; patient completes activity. [place] assists only prior to or following the activity. 4-Supervision or Touching Assistance-helper provides verbal cues and/or touching/steadying and/or contact guard assistance as patient completes activity. Assistance may be provided throughout the activity or intermittently. 3-Partial/Moderate Assistance-helper does LESS THAN HALF the effort. [place] lifts, holds or supports trunk or limbs, but provides less than half the effort. 2-Substantial/Maximal Assistance-helper does MORE THAN HALF the effort. [place] lifts or holds trunk or limbs and provides more than half the effort. 4-Vqaegjyyd-hrnazx does ALL the effort. Patient does none of the effort to complete the activity. Or, the assistance of 2 or more helpers is required for the patient to complete the activity. If activity was not attempted, code reason: 7-Patient Refused. 9-Not Applicable-not attempted and the patient did not perform the activity before the current illness, exacerbation or injury. 10-Not Attempted due to Environmental Limitations-(lack of equipment, weather restraints, etc.). 88-Not Attempted due to Medical Conditions or Safety Concerns. Sit to Stand (QC): 3 Chair/Hxt-nq-Ntorp Xfer(QC): 3 Toilet Transfer (QC): 3 Exercises Seated Therapy Exercises: Ankle pumps, Sit to stand, Long arc quads Seated Reps: 15 Treatments leaning forward in chair min asst, sit to stnd mod assist, SPT chair to BSC mod asst very slow requiring asst to move RLE. On BSC with abdullahi at hand, nurse enters room as this [employer]SEMBLER exits to assure her safety Assessment Current Status: Fair Progress very fatigued, very dyspneic, O2 insitu, weak R U&L ext PT Shelter Goals Shelter Goals PT Shelter Goals Time Frame: Oct 30, 2021 Roll Left & Right (QC): 3 Sit to Lying (QC): 3 Lying-Sitting on Side/Bed(QC): 3 Sit to Stand (QC): 3 Chair/Biw-as-Hkhij Xfer(QC): 3 Toilet Transfer (QC): 3 Does the Patient Walk: Yes Walk 10 feet (QC): 3 Walk 50ft with 2 Turns (QC): 3 PT Plan Treatment/Plan Treatment Plan: Continue Plan of Care Treatment Plan: Bed Mobility, Education, Functional Activity Baljeet, Functional Strength, Gait, Safety, Therapeutic Exercise, Transfers Treatment Duration: Oct 30, 2021 Frequency: 6 times per week Estimated Hrs Per Day: .25 hour per day Safety Risks/Education Patient Education: Transfer Techniques, Correct Positioning, Safety Issues Teaching Recipient: Patient Teaching Methods: Discussion Response to Teaching: Return Demonstration, Reinforcement Needed Time/GCodes Time In: 1415 Time Out: 1430 Total Billed Treatment Time: 15 Total Billed Treatment 1,FA15m CHRIS MOLINA [employer] Oct 20, 2021 14:48
--- NOTE | 2021-10-20 14:56 | Diagnostic Imaging Report ---
INDICATION: Dyspnea. COMPARISON: 10/18/2021. FINDINGS: Single frontal radiographic view of the chest was obtained and demonstrates persistent moderate cardiomegaly and moderate pulmonary vascular congestion. Lungs continue to show diffuse prominence of the interstitium as well as mohs-xa-cvrkcgxt bibasilar effusions, right greater than left. Overall, aeration has not significantly changed. There is no pneumothorax. IMPRESSION: 1. Persistent cardiomegaly with sequelae of CHF including interstitial pulmonary edema and bibasilar effusions. Dictated by: Dictated on workstation # [id number]
--- NOTE | 2021-10-20 19:22 | Progress Note - Hospitalist ---
Subjective HPI/CC On Admission Date Seen by Provider: Oct 20, 2021 Time Seen by Provider: 10:00 Radha Ramsey is an 81 year old female with PMH HTN, CAD, hypothyroidism, atrial fibrillation, chronic respiratory failure with hypoxia on 2-3 L, who was found down on her bathroom floor. She was down for an unknown amount of time. She is unable to provide any history. She has family at the bedside. She reportedly lives independently and leads a relatively "normal" life. She was found to have right sided weakness on arrival and underwent CT head which showed no acute abnormalities. She was also found to have a significantly elevated troponin and was taken for urgent heart cath. She was found to have no significant coronary artery disease and no intervention was required. She was transferred to the ICU. Her care has been transferred to the hospitalist service. Subjective/Events-last exam She is in bed. Her son is visiting. She is short of breath. She has no other complaints. Objective Exam Vital Signs Vital Signs Date Time Temp Pulse Resp B/P (MAP) Pulse Ox O2 Delivery O2 Flow Rate FiO2 10/20/21 19:08 90 High Flow N/C 5.00 10/20/21 15:58 36.6 82 22 138/77 10/18/21 16:00 40 Capillary Refill : Less Than 3 Seconds General Appearance: No Apparent Distress, WD/WN Respiratory: Decreased Breath Sounds, Respiratory Distress (tachypnea) Cardiovascular: Regular Rate, Rhythm, No Murmur Gastrointestinal: Normal Bowel Sounds, Non Tender, Soft Extremity: Normal Inspection, Pedal Edema Neurologic/Psychiatric: Alert, Motor Weakness Skin: Normal Color, Warm/Dry Results/Procedures Lab Laboratory Tests 10/20/21 07:29 Patient resulted labs reviewed. Imaging: Reviewed Imaging Report Assessment/Plan Assessment and Plan Assess & Plan/Chief Complaint Acute ischemic stroke of multiple vascular territories MRI with multifocal strokes Continue aspirin and Lipitor PT/OT Will require SNF placement Social work assistance appreciated NSTEMI AFib Acute on chronic HFpEF Pulmonary HTN Mild bilateral carotid stenosis Left heart cath without significant CAD Continue Cardizem and Eliquis Cardiology following Chest xray consistent with CHF Lasix Acute on chronic respiratory failure with hypoxia Pneumonia Supplemental oxygen as needed, wean as able Continue Zosyn HTN CAD Hypothyroidism Continue home meds Lactic acidosis, resolved Septic shock, resolved Rhabdomyolysis, resolved Elevated LFTs, improving AFib with RVR, resolved Diagnosis/Problems Diagnosis/Problems (1) Acute ischemic multifocal multiple vascular territories stroke Status: Acute (2) Septic shock Status: Resolved Resolution Date/Time: 10/18/21 @ 18:04 (3) Acute on chronic respiratory failure with hypoxia Status: Acute (4) PNA (pneumonia) Status: Acute (5) Metabolic encephalopathy Status: Resolved Resolution Date/Time: 10/18/21 @ 18:04 (6) Right sided weakness Status: Acute (7) Elevated LFTs Status: Resolved Resolution Date/Time: 10/18/21 @ 18:10 (8) Rhabdomyolysis Status: Resolved Resolution Date/Time: 10/18/21 @ 18:10 (9) HTN (hypertension) Status: Chronic (10) CAD (coronary artery disease) Status: Chronic (11) Hypothyroidism Status: Chronic (12) Atrial fibrillation with RVR Status: Acute (13) Lactic acidosis Status: Resolved Resolution Date/Time: 05/28/20 @ 14:32 (14) NSTEMI (non-ST elevated myocardial infarction) Status: Acute (15) Pulmonary hypertension Status: Acute (16) (HFpEF) heart failure with preserved ejection fraction Status: Acute Qualifiers: Heart failure chronicity: acute on chronic Qualified Codes: I50.33 - Acute on chronic diastolic (congestive) heart failure Clinical Quality Measures Stroke: Symptoms onset unknown: Yes MARINA OROZCO MD Oct 20, 2021 19:22
[2021-10-21] MEDS: RT-ALBUTEROL/IPRATROPIUM 3 ML (DUONEB) VIAL INH SCH ×6 (01:59→22:00)
[2021-10-21 08:19] LABS: CALCIUM 9.4 MG/DL (8.5-10.1); CREATININE SERUM 0.73 MG/DL (0.60-1.30); POTASSIUM 3.8 MMOL/L (3.6-5.0)
--- NOTE | 2021-10-21 08:26 | Cardiology Progress Note ---
Subjective Date Seen by Provider: Oct 21, 2021 Time Seen by Provider: 08:25 Subjective/Events-last exam Patient is laying down in bed, still having some shortness of breath. No chest pain. Review of Systems General: No Chills, No Night Sweats, No Fatigue, No Malaise, No Appetite, No Other HEENT: No Head Aches, No Visual Changes, No Eye Pain, No Ear Pain, No Dysphas ia, No Sinus Congestion, No Post Nasal Drip, No Sore Throat, No Other Pulmonary: No Dyspnea, No Cough, No Pleuritic Chest Pain, No Other Cardiovascular: No: Chest Pain, Palpitations, Orthopnea, Paroxysmal Noc. Dyspnea, Edema, Lt Headedness, Other Objective-Cardiology Exam Last Set of Vital Signs Vital Signs 10/18/21 10/21/21 10/21/21 10/21/21 16:00 04:16 06:53 07:00 Temp 36.2 Pulse 74 Resp 22 B/P (MAP) 144/79 Pulse Ox 90 O2 Delivery High Flow N/C O2 Flow Rate 5.00 FiO2 40 I&O Intake and Output 10/21/21 00:00 Intake Total 2010 ml Output Total 2700 ml Balance -690 ml Intake Oral 1810 ml IV Total 200 ml Output Urine Total 2700 ml # Urine Diapers 1 # Bowel Movements 2 General: Alert, Oriented X3, Cooperative HEENT: Atraumatic, PERRLA Neck: Supple, No JVD, No Thyromegaly Lungs: Clear to Auscultation, Normal Air Movement Heart: Normal S1, Normal S2, Other (Atrial fibrillation, systolic murmur at the left sternal border) Abdomen: Normal Bowel Sounds, Soft, No Tenderness, No Hepatosplenomegaly, No Masses Extremities: No Clubbing, No Cyanosis, No Edema, Normal Pulses, No Tenderness/Swelling Skin: No Rashes, No Breakdown, No Significant Lesion Neuro: Normal Speech, Normal Tone, Sensation Intact, Other (Right side weakness) Psych/Mental Status: Mood NL, Other (Confused) Results Lab Laboratory Tests 10/21/21 07:35 A/P-Cardiology Admission Diagnosis Non-ST elevation myocardial infarction, type II myocardial infarction Atrial fibrillation with rapid ventricular response Subacute CVA Acute respiratory failure Assessment/Plan Status post type II myocardial infarction, cardiac catheterization was carried out showing calcified coronary artery with mild to moderate disease nonobstructive disease. Probably secondary to atrial fibrillation and tachy cardia. Heart rate is better controlled. Paroxysmal atrial fibrillation, currently rate is better controlled, tolerating Cardizem and Eliquis. Continue all current medications and monitor Shortness of breath, acute on chronic respiratory insufficiency, status post respiratory failure, add additional dose of Lasix today, maintained on nasal cannula. Generalized weakness, change in mental status, NIH score of 5. Did not qualify for TPA. Subacute CVA, MRI suggestive multifocal strokes, receiving physical therapy 2D echo was done on 10/18/2021 showing normal left ventricular size and systolic function ejection fraction 60%, biatrial enlargement, severe pulmonary hypertension, heavily calcified mitral valve with mild mitral stenosis, mild aortic stenosis. Sepsis, receiving antibiotics, managed by medical team Hypertension, monitor blood pressure RIK MILLARD MD Oct 21, 2021 08:26
[2021-10-21] MEDS: ASPIRIN E.C. 81 MG (ECOTRIN) TAB PO SCH (09:15)
[2021-10-21] MEDS: DIGOXIN 0.125 MG (LANOXIN) TAB PO SCH (09:15)
[2021-10-21] MEDS: OXYBUTYNIN (DITROPAN) 5 MG TAB PO SCH ×2 (09:15→21:09)
[2021-10-21] MEDS: FUROSEMIDE 40 MG/4 ML INJ (LASIX) IVP SCH (09:15)
[2021-10-21] MEDS: LEVOTHYROXINE 75 MCG (LEVOTHROID) TABLET PO SCH (09:15)
[2021-10-21] MEDS: lisINopril 40 MG (PRINIVIL) TABLET PO SCH (09:15)
[2021-10-21] MEDS: APIXABAN 5 MG (ELIQUIS) TABLET PO SCH ×2 (09:15→21:09)
[2021-10-21] MEDS: NS IV 500 ML 500 ML IV SCH (09:16)
--- NOTE | 2021-10-21 11:58 | Physical Therapy Daily Note ---
PT Daily Note-Current Subjective Patient was sitting on the commode with nursing staff at the start of treatment. Patient agreed to transfer to the chair with therapy. Mental Status Patient Orientation: Person Transfers SCALE: Activities may be completed with or without assistive devices. 0-Tyqlcnscxp-trrocam completes the activity by him/herself with no assistance from a helper. 5-Set-up or Clean-up Assistance-helper sets up or cleans up; patient completes activity. [place] assists only prior to or following the activity. 4-Supervision or Touching Assistance-helper provides verbal cues and/or touching/steadying and/or contact guard assistance as patient completes activity. Assistance may be provided throughout the activity or intermittently. 3-Partial/Moderate Assistance-helper does LESS THAN HALF the effort. [place] lifts, holds or supports trunk or limbs, but provides less than half the effort. 2-Substantial/Maximal Assistance-helper does MORE THAN HALF the effort. [place] lifts or holds trunk or limbs and provides more than half the effort. 4-Drtcqxxsu-xwbnmc does ALL the effort. Patient does none of the effort to complete the activity. Or, the assistance of 2 or more helpers is required for the patient to complete the activity. If activity was not attempted, code reason: 7-Patient Refused. 9-Not Applicable-not attempted and the patient did not perform the activity before the current illness, exacerbation or injury. 10-Not Attempted due to Environmental Limitations-(lack of equipment, weather restraints, etc.). 88-Not Attempted due to Medical Conditions or Safety Concerns. Sit to Stand (QC): 1 Toilet Transfer (QC): 1 Patient was dependent for sit to stand and toilet transfer off the commode. Patient did not attempt to use a walker for ambulation due to weakness in her R arm. Exercises Seated Therapy Exercises: Long arc quads, Hip flexion Seated Reps: 10 Assessment Patient was dependent for all transfers off the commode and to the chair. Patient is unable to use a walker currently due to weakness in her right arm. Patient was left post tx in her chair with nurse call, phone, and all needs met. PT Snf Goals Offset Lithographic Press Operator Goals PT Offset Lithographic Press Operator Goals Time Frame: Oct 30, 2021 Roll Left & Right (QC): 3 Sit to Lying (QC): 3 Lying-Sitting on Side/Bed(QC): 3 Sit to Stand (QC): 3 Chair/Gtn-lp-Hdnbt Xfer(QC): 3 Toilet Transfer (QC): 3 Does the Patient Walk: Yes Walk 10 feet (QC): 3 Walk 50ft with 2 Turns (QC): 3 PT Plan Problem List Problem List: Activity Tolerance, Functional Strength, Safety, Balance, Gait, Transfer, Bed Mobility, ROM Treatment/Plan Treatment Plan: Continue Plan of Care Treatment Plan: Bed Mobility, Education, Functional Activity Baljeet, Functional Strength, Gait, Safety, Therapeutic Exercise, Transfers Treatment Duration: Oct 30, 2021 Frequency: 6 times per week Estimated Hrs Per Day: .25 hour per day Time/GCodes Time In: 1134 Time Out: 1142 Total Billed Treatment Time: 8 Total Billed Treatment 1 Visit FA 8 min BUTCH WILLS PT Oct 21, 2021 11:58
--- NOTE | 2021-10-21 12:37 | Progress Note - Hospitalist ---
Subjective HPI/CC On Admission Date Seen by Provider: Oct 21, 2021 Time Seen by Provider: 10:45 Radha Ramsey is an 81 year old female with PMH HTN, CAD, hypothyroidism, atrial fibrillation, chronic respiratory failure with hypoxia on 2-3 L, who was found down on her bathroom floor. She was down for an unknown amount of time. She is unable to provide any history. She has family at the bedside. She reportedly lives independently and leads a relatively "normal" life. She was found to have right sided weakness on arrival and underwent CT head which showed no acute abnormalities. She was also found to have a significantly elevated troponin and was taken for urgent heart cath. She was found to have no significant coronary artery disease and no intervention was required. She was transferred to the ICU. Her care has been transferred to the hospitalist service. Subjective/Events-last exam She is tired. She is still short of breath. She denies pain. Objective Exam Vital Signs Vital Signs Date Time Temp Pulse Resp B/P (MAP) Pulse Ox O2 Delivery O2 Flow Rate FiO2 10/21/21 12:03 36.6 76 20 134/65 96 High Flow N/C 5.00 10/18/21 16:00 40 Capillary Refill : Less Than 3 Seconds General Appearance: No Apparent Distress, Chronically ill Respiratory: No Respiratory Distress, Decreased Breath Sounds Cardiovascular: Regular Rate, Rhythm, No Murmur Gastrointestinal: Normal Bowel Sounds, Soft Extremity: Normal Inspection, Pedal Edema Neurologic/Psychiatric: Alert, Motor Weakness Skin: Normal Color, Warm/Dry Results/Procedures Lab Laboratory Tests 10/21/21 07:35 Patient resulted labs reviewed. Imaging: Reviewed Imaging Report Assessment/Plan Assessment and Plan Assess & Plan/Chief Complaint Acute ischemic stroke of multiple vascular territories MRI with multifocal strokes Continue aspirin and Lipitor PT/OT Will require SNF placement Social work assistance appreciated NSTEMI AFib Acute on chronic HFpEF Pulmonary HTN Mild bilateral carotid stenosis Left heart cath without significant CAD Continue Cardizem and Eliquis Cardiology following Chest xray consistent with CHF Continue Lasix Acute on chronic respiratory failure with hypoxia Pneumonia Supplemental oxygen as needed, wean as able Continue Zosyn HTN CAD Hypothyroidism Continue home meds Lactic acidosis, resolved Septic shock, resolved Rhabdomyolysis, resolved Elevated LFTs, improving AFib with RVR, resolved Diagnosis/Problems Diagnosis/Problems (1) Acute ischemic multifocal multiple vascular territories stroke Status: Acute (2) Septic shock Status: Resolved Resolution Date/Time: 10/18/21 @ 18:04 (3) Acute on chronic respiratory failure with hypoxia Status: Acute (4) PNA (pneumonia) Status: Acute (5) Metabolic encephalopathy Status: Resolved Resolution Date/Time: 10/18/21 @ 18:04 (6) Right sided weakness Status: Acute (7) Elevated LFTs Status: Resolved Resolution Date/Time: 10/18/21 @ 18:10 (8) Rhabdomyolysis Status: Resolved Resolution Date/Time: 10/18/21 @ 18:10 (9) HTN (hypertension) Status: Chronic (10) CAD (coronary artery disease) Status: Chronic (11) Hypothyroidism Status: Chronic (12) Atrial fibrillation with RVR Status: Acute (13) Lactic acidosis Status: Resolved Resolution Date/Time: 05/28/20 @ 14:32 (14) NSTEMI (non-ST elevated myocardial infarction) Status: Acute (15) Pulmonary hypertension Status: Acute (16) (HFpEF) heart failure with preserved ejection fraction Status: Acute Qualifiers: Heart failure chronicity: acute on chronic Qualified Codes: I50.33 - Acute on chronic diastolic (congestive) heart failure Clinical Quality Measures Stroke: Symptoms onset unknown: Yes MARINA OROZCO MD Oct 21, 2021 12:37
[2021-10-21] MEDS: ALPRAZolam 0.25 MG (XANAX) TAB PO PRN (21:09)
[2021-10-22] MEDS: RT-ALBUTEROL/IPRATROPIUM 3 ML (DUONEB) VIAL INH SCH ×3 (02:45→11:00)
[2021-10-22 06:22] LABS: POTASSIUM 5.1 MMOL/L (3.6-5.0)
[2021-10-22 06:23] LABS: CALCIUM 9.7 MG/DL (8.5-10.1)
[2021-10-22 06:27] LABS: CREATININE SERUM 0.77 MG/DL (0.60-1.30)
[2021-10-22] MEDS: lisINopril 40 MG (PRINIVIL) TABLET PO SCH (10:13)
[2021-10-22] MEDS: FUROSEMIDE 40 MG/4 ML INJ (LASIX) IVP SCH (10:13)
[2021-10-22] MEDS: DIGOXIN 0.125 MG (LANOXIN) TAB PO SCH (10:13)
[2021-10-22] MEDS: LEVOTHYROXINE 75 MCG (LEVOTHROID) TABLET PO SCH (10:13)
[2021-10-22] MEDS: ASPIRIN E.C. 81 MG (ECOTRIN) TAB PO SCH (10:14)
[2021-10-22] MEDS: APIXABAN 5 MG (ELIQUIS) TABLET PO SCH (10:14)
[2021-10-22] MEDS: OXYBUTYNIN (DITROPAN) 5 MG TAB PO SCH (10:14)
--- NOTE | 2021-10-22 10:50 | Physical Therapy Progress Note ---
Therapy Progress Note Patient is sitting in her chair but is very lethargic and unable to follow commands for therapy session. PT will attempt to see patient in a.m. 1 Visit BUTCH WILLS PT Oct 22, 2021 10:50
[2021-10-22] MEDS ORDERED: FURO40TA4 PO (11:14)
[2021-10-22] MEDS ORDERED: DIGO125T18 PO (11:14)
[2021-10-22] MEDS ORDERED: DILT240C90 PO (11:14)
[2021-10-22] MEDS ORDERED: ASPI-1238 PO (11:14)
[2021-10-22] MEDS ORDERED: ATOR40TA PO (11:14)
[2021-10-22] MEDS ORDERED: LISI40TA9 PO (11:14)
[2021-10-22] MEDS ORDERED: ISOS30TA82 PO (11:14)
[2021-10-22] MEDS ORDERED: LEVO75TA6 PO (11:14)
[2021-10-22] MEDS ORDERED: APIX5TAB PO (11:14)
[2021-10-22] MEDS ORDERED: GUAI600T43 PO (11:14)
[2021-10-22] MEDS ORDERED: CALC-650 PO (11:14)
[2021-10-22] MEDS ORDERED: OXYB5TAB13 PO (11:14)
--- NOTE | 2021-10-22 11:33 | Cardiology Progress Note ---
Subjective Date Seen by Provider: Oct 22, 2021 Time Seen by Provider: 11:32 Subjective/Events-last exam Patient was seen at bedside, lethargic, laying down in bed. Review of Systems General: No Chills, No Night Sweats; Fatigue, Malaise; No Appetite, No Other HEENT: No Head Aches, No Visual Changes, No Eye Pain, No Ear Pain, No Dysphasia, No Sinus Congestion, No Post Nasal Drip, No Sore Throat, No Other Pulmonary: No Dyspnea, No Cough, No Pleuritic Chest Pain, No Other Cardiovascular: No: Chest Pain, Palpitations, Orthopnea, Paroxysmal Noc. Dyspnea, Edema, Lt Headedness, Other Objective-Cardiology Exam Last Set of Vital Signs Vital Signs 10/18/21 10/22/21 10/22/21 16:00 08:00 11:12 Temp 35.8 Pulse 91 Resp 17 B/P (MAP) 128/75 Pulse Ox 93 O2 Delivery Nasal Cannula O2 Flow Rate 5.00 FiO2 40 I&O Intake and Output 10/22/21 00:00 Intake Total 1350 ml Output Total 2350 ml Balance -1000 ml Intake Oral 1350 ml Output Urine Total 2350 ml # Bowel Movements 1 General: Alert, Cooperative, No Acute Distress HEENT: Atraumatic, PERRLA Neck: Supple, No JVD, No Thyromegaly Lungs: Clear to Auscultation, Normal Air Movement Heart: Normal S1, Normal S2, Other (Atrial fibrillation, systolic murmur at the left sternal border) Abdomen: Normal Bowel Sounds, Soft, No Tenderness, No Hepatosplenomegaly, No Masses Extremities: No Clubbing, No Cyanosis, No Edema, Normal Pulses, No Tenderness/Swelling Skin: No Rashes, No Breakdown, No Significant Lesion Neuro: Normal Speech, Normal Tone, Sensation Intact, Other (Right side weakness) Psych/Mental Status: Mood NL, Other (Confused) Results Lab Laboratory Tests 10/22/21 05:53 A/P-Cardiology Admission Diagnosis Non-ST elevation myocardial infarction, type II myocardial infarction Atrial fibrillation with rapid ventricular response Subacute CVA Acute respiratory failure Assessment/Plan Multifocal strokes, subacute CVA, did not qualify for TPA. Had generalized weakness and change in mental status. Managed by medical team. Status post type II myocardial infarction, cardiac catheterization was carried out showing calcified coronary artery with mild to moderate disease nonobstructive disease. Probably secondary to atrial fibrillation and tachycardia. Heart rate is better controlled. Paroxysmal atrial fibrillation, currently rate is better controlled, tolerating Cardizem and Eliquis. Continue all current medications and monitor Shortness of breath, acute on chronic respiratory insufficiency, status post respiratory failure, add additional dose of Lasix today, maintained on nasal cannula. 2D echo was done on 10/18/2021 showing normal left ventricular size and systolic function ejection fraction 60%, biatrial enlargement, severe pulmonary hypertension, heavily calcified mitral valve with mild mitral stenosis, mild aortic stenosis. Sepsis, receiving antibiotics, managed by medical team Hypertension, monitor blood pressure RIK MILLARD MD Oct 22, 2021 11:33
--- NOTE | 2021-10-22 12:06 | Discharge Summary ---
Discharge Summary Hospital Course Hospital Course Date of Admission: Oct 18, 2021 at 19:50 Admission Diagnosis : Acute ischemic stroke Family Physician/Provider: Dale Maynard Physician Date of Discharge: 10/22/21 Discharge Diagnosis: Acute ischemic stroke Hospital Course: Radha Ramsey is an 81 year old female who presented with right arm weakness and confusion. She was admitted to the ICU. Her CT scan showed no evidence of stroke. She underwent an MRI which showed multi-focal strokes. There was no evidence of significant carotid stenosis. She has a history of AFib and reported compliance with her anticoagulation. Her course was complicated by NSTEMI. She underwent left heart cath which showed nonobstructive coronary artery disease and no intervention was required. Her course was complicated by acute on chronic respiratory failure with hypoxia due to heart failure. She was diuresed and her oxygen requirement improved. She was requiring 5-6 L continuously at the time of discharge. She also had pneumonia and received a course of antibiotics. She was discharged to [facility] for ongoing therapy needs. She was discharged in guarded condition. Labs and Pending Lab Test: Laboratory Tests 10/21/21 15:46: Glucometer 117H 10/22/21 05:53: Sodium Level 143, Potassium Level 5.1H, Chloride Level 98, Carbon Dioxide Level 33H, Anion Gap 12, Blood Urea Nitrogen 24H, Creatinine 0.77, Estimat Glomerular Filtration Rate 77, BUN/Creatinine Ratio 31, Glucose Level 111H, Calcium Level 9.7 Microbiology 10/15/21 Blood Culture - Final, Complete No growth Home Meds Active Oxybutynin Chloride 5 Mg Tablet 5 Mg PO BID 30 Days Aspirin EC (Aspirin) 81 Mg Tablet.dr 81 Mg PO DAILY 30 Days Lipitor (Atorvastatin Calcium) 40 Mg Tablet 40 Mg PO HS 30 Days Diltiazem 24Hr Cd (Diltiazem HCl) 240 Mg Cap.er.24h 240 Mg PO DAILY 30 Days Isosorbide Mononitrate ER (Isosorbide Mononitrate) 30 Mg Tab.er.24h 30 Mg PO DAILY 30 Days Digox (Digoxin) 125 Mcg Tablet 0.125 Mg PO DAILY 30 Days Eliquis (Apixaban) 5 Mg Tablet 5 Mg PO BID 30 Days Lisinopril 40 Mg Tablet 40 Mg PO DAILY 30 Days Mucinex (Guaifenesin) 600 Mg Tab.er.12h 600 Mg PO DAILY 30 Days Levothyroxine Sodium 75 Mcg Tablet 75 Mcg PO DAILY 30 Days Furosemide 40 Mg Tablet 40 Mg PO DAILY 30 Days Christopher-Mag Tablet Chewable (Calcium Carb/Magnesium Cmb #10) 1 Each Tab.chew 1 Each PO DAILY 30 Days Reported Potassium Chloride 20 Meq Tab.er.prt 20 Meq PO DAILY Allopurinol 100 Mg Tablet 100 Mg PO DAILY PRN Magnasweet 135 (Flavoring Agent) 1 Gm Powder 0 MC DAILY PRN Excedrin Extra Strength Caplet (Aspirin/Acetaminophen/Caffeine) 1 Each Tablet 1 Each PO DAILY PRN Potassium Gluconate 99 Mg Tablet.er 99 Mg PO DAILY B Complex (Vitamin B Complex) 1 Each Tablet 1 Each PO DAILY Tramadol HCl 50 Mg Tablet 50 Mg PO Q6H PRN Benadryl (Diphenhydramine HCl) 25 Mg Capsule 25 Mg PO HS PRN Instructions to Patient/Family Assessment/Instructions Take medications as prescribed. Follow up with your PCP. Return with worsening weakness, shortness of breath, or if you feel like you are getting worse. Follow Up Appt.: next long-term rounds Skilled NF Admit to: [facility] Emergency Department Certification ([facility]) I certify that SNF services are required to be given on an inpatient basis because of the above named patient's need for residential care on a con tinuing basis for the conditions(s) for which he/she was receiving inpatient hospital services prior to his/her transfer to the SNF. Half-Way Facility Order: Nursing Services, Studio Technician-Evaluate & Treat, Physical Therapy-Evaluate & Treat Oxygen Delivery Method: Nasal Cannula Oxygen Flow Rate L/min (Range): 6 Discharge Diet: Low Sodium Diet Daily Activity as Tolerated: Yes Resuscitation Status: Do Not Resuscitate Marina Orozco Oct 22, 2021 11:39 Discharge Physical Exam General: Alert, Cooperative, Other (chronically ill) HEENT: Atraumatic, Mucous Memb Moist/[place] Lungs: Other (decreased breath sounds, tachypnea) Heart: Other (irregularly irregular, systolic murmur) Abdomen: Normal Bowel Sounds, Soft Extremities: No Edema, No Tenderness/Swelling Skin: No Rashes, No Significant Lesion Neuro: Normal Speech, Other (motor weakness right upper extremity) Psych/Mental Status: Mental Status NL, Other (depressed affect) MARINA OROZCO MD Oct 22, 2021 12:05
[2021-10-22 14:38] VITALS: BP 142/70
== END 2021-10-22 14:39 | DRG 64 ==
LOC: EDUNIT# 15:26 → ER 15:27 → CATH 17:31 → ICU 18:22 → CATH 10-18 19:50 → ICU 10-18 19:50 → 4TH 10-19 17:31
PROVIDERS: ADMIT Internal Medicine; ATTEND Internal Medicine
PROC: 4A023N7 Measurement of Cardiac Sampling and Pressure, Left Heart, Percutaneous Approach (ICD-10-PCS; principal; 2021-10-15)
PROC: B2111ZZ Fluoroscopy of Multiple Coronary Arteries using Low Osmolar Contrast (ICD-10-PCS; 2021-10-15)
PROC: B2151ZZ Fluoroscopy of Left Heart using Low Osmolar Contrast (ICD-10-PCS; 2021-10-15)
DX: I63.233 Cerebral infarction due to unspecified occlusion or stenosis of bilateral carotid arteries (principal); A41.9 Sepsis, unspecified organism; J96.21 Acute and chronic respiratory failure with hypoxia; J18.9 Pneumonia, unspecified organism; R65.21 Severe sepsis with septic shock; G93.41 Metabolic encephalopathy; I50.33 Acute on chronic diastolic (congestive) heart failure; I21.A1 Myocardial infarction type 2; E87.2 Acidosis; M62.82 Rhabdomyolysis; G81.91 Hemiplegia, unspecified affecting right dominant side; I27.20 Pulmonary hypertension, unspecified; I25.10 Atherosclerotic heart disease of native coronary artery without angina pectoris; R29.705 NIHSS score 5; E03.9 Hypothyroidism, unspecified; Z79.82 Long term (current) use of aspirin; Z79.01 Long term (current) use of anticoagulants; Z79.899 Other long term (current) drug therapy; K21.9 Gastro-esophageal reflux disease without esophagitis; K57.90 Diverticulosis of intestine, part unspecified, without perforation or abscess without bleeding; M79.7 Fibromyalgia; G89.29 Other chronic pain; M54.9 Dorsalgia, unspecified; F41.9 Anxiety disorder, unspecified; I11.0 Hypertensive heart disease with heart failure; I48.0 Paroxysmal atrial fibrillation; Z20.822 Contact with and (suspected) exposure to COVID-19
CPT/HCPCS: 36415; 51702; 70450; 71045; 71275; 74177; 80048; 80053; 80061; 80076; 80162; 80202; 81000; 82550; 82805; 82947; 83605; 83735; 83880; 84100; 84145; 84484; 85007; 85025; 85027; 85379; 85610; 85730; 87040; 87636; 93005; 93041; 93458; 94640; 94664; 94760; 99291